=== PATIENT | male | born 2000 | race Two or more races ===

== ENCOUNTER 2024-07-15 10:05 | Inpatient (IN) | payer MEDICARE, MEDICAID, SELFPAY ==
[2024-07-15] VITALS (28 sets, daily range): BP systolic 121–161; BP diastolic 59–84; PULSE 70–130; RESP 14–40; TEMP 36.4–38.7; O2SAT 89–97; BMI 33.4
--- NOTE | ~2024-07-15 | XR_ITS ---
EXAMINATION: XR abdomen obstructive series DATE: 07/19/2024 10:39 INDICATION: Ileus TECHNIQUE: Frontal supine and upright views of the abdomen were obtained. COMPARISON: None. FINDINGS: Moderate to large amount of gas and stool scattered throughout the colon. No dilated loops of gas-ivana led small bowel to suggest obstruction. No free intraperitoneal gas. Airspace opacities in the bila teral lower lung zones improved since radiographs dated 07/17/2024 which could represent decreasing p ulmonary edema or improving pneumonia. Heart size is normal. Mild lumbar levoscoliosis. IMPRESSION: 1. Nonspecific bowel gas pattern with moderate to large amount of colonic gas and stool. No free int raperitoneal gas or dilated gas-filled loops of bowel to suggest obstruction. 2. Decreasing opacities in the bilateral lower lungs consistent with improving pulmonary edema or pne umonia. 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 Nonspecific bowel gas pattern with moderate to large amount of colonic gas and stool. No free intraperitoneal gas or dilated gas-filled loops of bowel to suggest obstruction. 2. Decreasing opacities in the bilateral lower lungs consistent with improving pulmonary edema or pneumonia.
--- NOTE | ~2024-07-15 | CT_ITS ---
EXAMINATION: CTA chest PE protocol DATE: 07/15/2024 11:09 INDICATION: Covid presenting with hypoxia and shortness of breath TECHNIQUE: Computed tomography (CT) pulmonary angiogram of the chest was performed with 100 mL Omnipa que-350 intravenous contrast. Additional 3D reconstructions utilizing coronal maximum intensity proje ction (MIP) were performed. Automated exposure control and iterative reconstruction technique were em ployed. The dose-length product was 721.82 mGy-cm. COMPARISON: None FINDINGS: No evident pulmonary embolism. Sensitivity mildly decreased in the segmental and more significantly d ecrease in the subsegmental pulmonary arteries due to combination of mild motion artifact, good but s uboptimal contrast opacification of the pulmonary arteries, streak artifact related to dense contrast in the superior vena cava and mild quantum mottle related to patient body habitus. Extensive bilater al patchy consolidation groundglass opacities throughout both lungs without evident septal line thick ening to suggest pulmonary edema and would favor multifocal pneumonia. Heart size is normal. No peric ardial effusion. Thoracic aorta is normal in caliber with no dissection. Likely reactive mild mediast inal lymphadenopathy. The bones and visualized portion of the upper abdomen are unremarkable. IMPRESSION: 1. Multifocal pneumonia throughout both lungs with likely reactive mild mediastinal lymphadenopathy. 2. No evident pulmonary embolism with sensitivity decreased in the segmental and more significantly i n the subsegmental pulmonary arteries which is of multifactorial etiology. Reviewed, dictated and finalized at location A. D MOLDER IMPRESSION: 1. Multifocal pneumonia throughout both lungs with likely reactive mild mediast inal lymphadenopathy. 2. No evident pulmonary embolism with sensitivity decreased in the segmental an d more significantly in the subsegmental pulmonary arteries which is of multifa ctorial etiology.
--- NOTE | ~2024-07-15 | XR_ITS ---
EXAMINATION: XR abdomen/kub 1V DATE: 07/17/2024 22:20 INDICATION: Fecal impaction. TECHNIQUE: A supine view of the abdomen on 2 radiographs was obtained. COMPARISON: Chest CT 07/25/2024 FINDINGS: There is gaseous distention of the sigmoid colon. There is a moderate volume of stool in th e colon. The small bowel is normal in caliber. IMPRESSION: 1. Distended sigmoid colon, consistent with adynamic ileus versus obstruction. Reviewed, dictated and finalized at location A. NT PROGRAM MANAGER
--- NOTE | ~2024-07-15 | XR_ITS ---
EXAMINATION: XR barium swallow modified DATE: 07/19/2024 11:00 INDICATION: Pneumonia. TECHNIQUE: The patient was given barium-containing material of multiple consistencies to swallow by t he speech pathologist while I performed fluoroscopy. Fluoroscopy exposure time was 0.7 minutes. The n umber of fluoroscopy images saved to the PACS was 1. Dose-area product was 1.387 Gy-cm^2. FINDINGS: The oral stage, pharyngeal stage, and cervical/esophageal stage of the swallow are normal. IMPRESSION: 1. Normal modified barium swallow. 2. Please refer to the speech therapy report for recommendations. Reviewed, dictated and finalized at location A. ATER OPERATOR
--- NOTE | ~2024-07-15 | XR_ITS ---
EXAMINATION: XR chest 2V DATE: 07/17/2024 22:20 INDICATION: Chest pain. TECHNIQUE: Frontal and lateral views of the chest were obtained. COMPARISON: Chest CT 07/15/2024 FINDINGS: There are airspace opacities in all lung zones bilaterally. No pleural effusion or pneumoth orax. The heart size is normal. IMPRESSION: 1. Diffuse lung disease, consistent with pneumonia. Reviewed, dictated and finalized at location A. E READER
--- NOTE | ~2024-07-15 | US_ITS ---
US right upper quadrant DATE: 07/17/2024 19:16 INDICATION: Elevated liver function tests TECHNIQUE: Real-time imaging of liver, pancreas, gallbladder COMPARISON: None FINDINGS: The pancreas is not well-demonstrated. No hepatic space-occupying mass lesion. Normal hepatopedal portal venous flow direction. Shadowing from the contracted gallbladder bed, suggesting cholelithiasis. Negative sonographic Felton sign. The common bile duct measures 5.5 mm, upper normal range. IMPRESSION: Suspected cholelithiasis Reviewed, dictated and finalized at Location A. Reviewed, dictated and finalized at location A. NING LATHE OPERATOR IMPRESSION: Suspected cholelithiasis
--- NOTE | 2024-07-15 10:10 | ECG_ITS ---
Test Date: 2024-07-15 14:52:16 Measurements Intervals [place] Rate: 88 P: 37 MA: 188 QRS: 59 QRSD: 86 T: 27 QT: 357 QTc: 433 Interpretive Statements SINUS RHYTHM NONSPECIFIC T-WAVE ABNORMALITY Compared to ECG 07/15/2024 10:46:28 Sinus tachycardia no longer present Electronically Signed On 07-16-2024 11:58:07 [employer] by Sheldon Robles M.D.
--- NOTE | 2024-07-15 10:27 | ED_ITS ---
HPI - URI/Sore Throat General Chief Complaint: Upper Respiratory Infection <CE Bang Last Filed: 07/15/24 19:02> Stated Complaint: COVID , low pulse ox <Sayda Dillard PA-C - Last Filed: 07/15/24 19:02> Time Seen by Provider: 07/15/24 10:07 <Sayda Dillard PA-C - Last Filed: 07/15/24 19:02> Source: patient and family <CE Bang Last Filed: 07/15/24 19:02> Mode of arrival: EMS <CE Bang Last Filed: 07/15/24 19:02> Limitations: no limitations <CE Bang Last Filed: 07/15/24 19:02> History of Present Illness HPI Narrative: Patient is a 24 y/o male, with PMH of XXYY syndrome, autism, who presents to the ED via EMS with report of SOB. Family at bedside assisted in providing information. Reports patient tested positive for COVID 19 at home on Friday. Has remained symptomatic with persistent cough/sore throat and increasing shortness of breath. Had fever up to 104.5 degree F this morning. Was given Aleve around 830am. EMS was then called. EMS noted patient to be hypoxic down to 86% on room air. He was placed on 4 L nasal cannula. Patient is vaccinated for COVID 19 with original vaccinations. Has not had boosters. Did receive flu shot this year. Denies chest pain. <CE Bang Last Filed: 07/15/24 19:02> Related Data Allergies/Adverse Reactions: Allergies Allergy/AdvReac Type Severity Reaction Status Date / Time No Known Allergies Allergy Verified 07/15/24 10:09 <CE Bang Last Filed: 07/15/24 19:02> Review of Systems 2 Review of Systems: All systems reviewed & are unremarkable except as noted in HPI. <CE Bang Last Filed: 07/15/24 19:02> All systems reviewed & are unremarkable except as noted in HPI and below < Sayda Dillard PA-C - Last Filed: 07/15/24 19:02> [facility] Past Medical History Medical History: Medical History XXYY syndrome <Sayda Dillard PA-C - Last Filed: 07/15/24 19:02> Exam 2 Narrative: GENERAL: Mildly ill appearing, obese with BMI of 34.2, in moderate acute distress. HEAD: Normocephalic, atraumatic. RESPIRATORY: Airway patent, respirations tachypneic and mildly labored. Conversational dyspnea. Diffuse rhonchi in lower lobes bilaterally. On 2L NC CARDIOVASCULAR: Tachycardic with regular rhythm without murmurs, rubs, or gallops. Peripheral pulses intact ABDOMINAL: Soft, no significant tenderness throughout exam, nondistended. Normoactive BS. MUSCULOSKELETAL: Moves all extremities. No gross deformities. No peripheral edema. SKIN: Warm, dry, normal color. NEURO: Alert, answers questions appropriately. Speech clear. Cranial nerves II- XII grossly intact. Steady gait. No ataxic movements. PSYCHIATRIC: Appropriate mood and affect. Normal interaction. <Sayda Dillard PA-C - Last Filed: 07/15/24 19:02> Course [employer]INTER/PA Physician Supervision This visit was performed by both a physician and an APC. I performed all aspects of the MDM as documented. <Barrett Motta MD - Last Filed: 07/15/24 18:53> Vital Signs Vital signs: Vital Signs Temperature 101.6 F H 07/15/24 10:00 Pulse Rate 130 H 07/15/24 10:00 Respiratory Rate 28 H 07/15/24 10:00 Blood Pressure 138/81 07/15/24 10:00 Pulse Oximetry 89 L 07/15/24 10:00 Oxygen Delivery Room Air 07/15/24 10:00 Temperature 98.1 F 07/15/24 13:00 Pulse Rate 82 07/15/24 18:30 Respiratory Rate 24 H 07/15/24 18:30 Blood Pressure 134/72 07/15/24 18:30 Pulse Oximetry 96 07/15/24 18:30 Oxygen Delivery Nasal Cannula 07/15/24 10:10 Oxygen Flow Rate 2 07/15/24 10:10 <Sayda Dillard PA-C - Last Filed: 07/15/24 19:02> Vital Signs Temperature 101.6 F H 07/15/24 10:00 Pulse Rate 130 H 07/15/24 10:00 Respiratory Rate 28 H 07/15/24 10:00 Blood Pressure 138/81 07/15/24 10:00 Pulse Oximetry 89 L 07/15/24 10:00 Oxygen Delivery Room Air 07/15/24 10:00 Temperature 98.1 F 07/15/24 13:00 Pulse Rate 82 07/15/24 18:30 Respiratory Rate 24 H 07/15/24 18:30 Blood Pressure 134/72 07/15/24 18:30 Pulse Oximetry 96 07/15/24 18:30 Oxygen Delivery Nasal Cannula 07/15/24 10:10 Oxygen Flow Rate 2 07/15/24 10:10 <Barrett Motta MD - Last Filed: 07/15/24 18:53> MDM - URI/Sore Throat MDM Narrative Medical decision making narrative: Patient presented to ED with known COVID-19, worsening shortness of breath. Found to be hypoxic by EMS down to 86% on room air. Placed on oxygen. He was 89% on the room air here, currently on 2 L nasal cannula. Patient tachycardic, tachypneic, febrile. Fluids and Tylenol initiated as well as dexamethasone for COVID hypoxia. Laboratory studies are fairly unremarkable. Mild thrombocytopenia noted at 123. No records to compare to. Electrolytes within normal range. Mag borderline, IV replacement given. Lactic acid within normal range. EKG w/o ischemic changes. Trop undetectable. BNP WNL. Chest CTA obtained and no evidence of PE. Does show multifocal pneumonia bilaterally. Blood cultures obtained. Patient will be admitted for further evaluation of hypoxia, pneumonia, severe COVID. Discussed case with Dr. Davis, hospitalist, accepted patient for admission. Recommended dexamethasone daily, remdesivir, as well as Rocephin/ azithromycin for potential bacterial pneumonia. Also recommended to add on urine sample. Patient and family in agreement with plan and need for admission. Patient's vitals have improved significantly after treatment of fever and 1 L fluid bolus. <Sayda Dillard PA-C - Last Filed: 07/15/24 19:02> Medical Records Attestation: I reviewed the patient's medical records. <Sayda Dillard PA-C - Last Filed: 07/15/24 19:02> Lab Data Attestation: I reviewed the patient's lab results. <Sayda Dillard PA-C - Last Filed: 07/15/24 19:02> Result diagrams: 07/15/24 10:31 07/15/24 10:31 <Sayda Dillard PA-C - Last Filed: 07/15/24 19:02> Labs: Lab Results 07/15/24 07/15/24 07/15/24 Range/Units 10:29 10:31 12:16 WBC 4.7 (4.5-10.0) K/mm3 RBC 5.40 (4.6-6.20) M/mm3 Hgb 14.9 (14.0-18.0) g/dL Hct 45.2 (42.0-52.0) % MCV 83.7 (80-100) fl MCH 27.6 (26-34) pg MCHC 33.0 (32-36) g/dl RDW 13.9 (11.5-14.5) % Plt Count 123 L (150-375) k/mm3 MPV 10.4 (7.4-10.4) fl Immature Gran % (Auto) 0.9 H (0-0.5) % Neut % (Auto) 53.6 (45.5-73.1) % Lymph % (Auto) 33.6 (18.3-44.2) % [place] % (Auto) 10.9 H (2.6-8.5) % Eos % (Auto) 0.6 (0-4.4) % Baso % (Auto) 0.4 (0.2-1.2) % Lymph # (Auto) 1.58 (0.9-3.2) K/mm3 [place] # (Auto) 0.5 (0.1-0.6) K/mm3 Eos # (Auto) 0.0 (0-0.3) K/mm3 Baso # (Auto) 0.0 (0.0-0.1) K/mm3 Abs Immat Gran (auto) 0.04 H (0.00-0.031) K/mm3 Absolute Neuts (auto) 2.5 (1.3-6.7) K/mm3 Absolute Nucleated RBC 0.000 (0.0-0.012) K/mm3 Nucleated RBC % 0.0 (0.0-0.2) % % Immature Plt Fraction 4.1 (0.9-11.2) % PT 13.8 (11.1-14.7) Seconds INR 1.0 APTT 32.7 (22.3-36.8) Seconds Sodium 140 (137-145) mmol/L Potassium 4.1 (3.4-5.0) mmol/L Chloride 108 H (98-107) mmol/L Carbon Dioxide 25 (22-30) mmol/L Anion Gap 7 (4-12) mmol/L BUN 15 (9-20) mg/dL Creatinine 1.20 (0.7-1.3) mg/dL Estim Creat Clear Calc Not Reportable Estimated GFR > 60 (59 - ) Glucose 158 H (65-110) mg/dL Lactic Acid 1.2 (0.7-2.0) mmol/L Calcium 8.5 (8.4-10.2) mg/dL Magnesium 1.6 (1.6-2.3) mg/dL Total Bilirubin 0.6 (0.2-1.3) mg/dL AST 52 (17-59) U/L ALT 55 H (6-50) U/L Alkaline Phosphatase 104 (38-126) U/L Troponin I < 0.012 (0.000-0.034) ng/mL NT-Pro-B Natriuret Pep 32 (19.9-100) pg/mL Total Protein 8.0 (6.3-8.2) g/dL Albumin 4.1 (3.5-5.1) g/dL Procalcitonin 0.2 ng/mL Urine Color Dark yellow (Yellow) Urine Appearance Clear (Clear) Urine pH 5.5 (5.0-9.0) Ur Specific [place] 1.043 H (1.001-1.035) Urine Protein 1+ H (Negative) mg/dL Urine Glucose (UA) Negative (Negative) mg/dL Urine Ketones Trace H (Negative) mg/dL Ur Blood (Man) 2+ H (Negative) Urine Nitrate Negative (Negative) Urine Bilirubin 1+ H (Negative) Urine Urobilinogen 1.0 (<2.0) mg/dL Add Ur Microanalysis Reviewed Leukocyte Esterase Rfl Negative (Negative) RUBIO/UL Urine RBC 11-20 H (0-2) /hpf Urine WBC 0-5 (0-3) /hpf Ur Squamous Epith Cells Moderate (Few) /hpf Urine Bacteria None seen /hpf Urine Casts 11-20 // Range/Units 13:08 WBC (4.5-10.0) K/mm3 RBC (4.6-6.20) M/mm3 Hgb (14.0-18.0) g/dL Hct (42.0-52.0) % MCV (80-100) fl MCH (26-34) pg MCHC (32-36) g/dl RDW (11.5-14.5) % Plt Count (150-375) k/mm3 MPV (7.4-10.4) fl Immature Gran % (Auto) (0-0.5) % Neut % (Auto) (45.5-73.1) % Lymph % (Auto) (18.3-44.2) % [place] % (Auto) (2.6-8.5) % Eos % (Auto) (0-4.4) % Baso % (Auto) (0.2-1.2) % Lymph # (Auto) (0.9-3.2) K/mm3 [place] # (Auto) (0.1-0.6) K/mm3 Eos # (Auto) (0-0.3) K/mm3 Baso # (Auto) (0.0-0.1) K/mm3 Abs Immat Gran (auto) (0.00-0.031) K/mm3 Absolute Neuts (auto) (1.3-6.7) K/mm3 Absolute Nucleated RBC (0.0-0.012) K/mm3 Nucleated RBC % (0.0-0.2) % % Immature Plt Fraction (0.9-11.2) % PT (11.1-14.7) Seconds INR APTT (22.3-36.8) Seconds Sodium (137-145) mmol/L Potassium (3.4-5.0) mmol/L Chloride (98-107) mmol/L Carbon Dioxide (22-30) mmol/L Anion Gap (4-12) mmol/L BUN (9-20) mg/dL Creatinine (0.7-1.3) mg/dL Estim Creat Clear Calc Estimated GFR (59 - ) Glucose (65-110) mg/dL Lactic Acid (0.7-2.0) mmol/L Calcium (8.4-10.2) mg/dL Magnesium (1.6-2.3) mg/dL Total Bilirubin (0.2-1.3) mg/dL AST (17-59) U/L ALT (6-50) U/L Alkaline Phosphatase (38-126) U/L Troponin I < 0.012 (0.000-0.034) ng/mL NT-Pro-B Natriuret Pep (19.9-100) pg/mL Total Protein (6.3-8.2) g/dL Albumin (3.5-5.1) g/dL Procalcitonin ng/mL Urine Color (Yellow) Urine Appearance (Clear) Urine pH (5.0-9.0) Ur Specific [place] (1.001-1.035) Urine Protein (Negative) mg/dL Urine Glucose (UA) (Negative) mg/dL Urine Ketones (Negative) mg/dL Ur Blood (Man) (Negative) Urine Nitrate (Negative) Urine Bilirubin (Negative) Urine Urobilinogen (<2.0) mg/dL Add Ur Microanalysis Leukocyte Esterase Rfl (Negative) RUBIO/UL Urine RBC (0-2) /hpf Urine WBC (0-3) /hpf Ur Squamous Epith Cells (Few) /hpf Urine Bacteria /hpf Urine Casts <Sayda Dillard PA-C - Last Filed: 07/15/24 19:02> Lab Results 07/15/24 07/15/24 07/15/24 Range/Units 10:29 10:31 12:16 WBC 4.7 (4.5-10.0) K/mm3 RBC 5.40 (4.6-6.20) M/mm3 Hgb 14.9 (14.0-18.0) g/dL Hct 45.2 (42.0-52.0) % MCV 83.7 (80-100) fl MCH 27.6 (26-34) pg MCHC 33.0 (32-36) g/dl RDW 13.9 (11.5-14.5) % Plt Count 123 L (150-375) k/mm3 MPV 10.4 (7.4-10.4) fl Immature Gran % (Auto) 0.9 H (0-0.5) % Neut % (Auto) 53.6 (45.5-73.1) % Lymph % (Auto) 33.6 (18.3-44.2) % [place] % (Auto) 10.9 H (2.6-8.5) % Eos % (Auto) 0.6 (0-4.4) % Baso % (Auto) 0.4 (0.2-1.2) % Lymph # (Auto) 1.58 (0.9-3.2) K/mm3 [place] # (Auto) 0.5 (0.1-0.6) K/mm3 Eos # (Auto) 0.0 (0-0.3) K/mm3 Baso # (Auto) 0.0 (0.0-0.1) K/mm3 Abs Immat Gran (auto) 0.04 H (0.00-0.031) K/mm3 Absolute Neuts (auto) 2.5 (1.3-6.7) K/mm3 Absolute Nucleated RBC 0.000 (0.0-0.012) K/mm3 Nucleated RBC % 0.0 (0.0-0.2) % % Immature Plt Fraction 4.1 (0.9-11.2) % PT 13.8 (11.1-14.7) Seconds INR 1.0 APTT 32.7 (22.3-36.8) Seconds Sodium 140 (137-145) mmol/L Potassium 4.1 (3.4-5.0) mmol/L Chloride 108 H (98-107) mmol/L Carbon Dioxide 25 (22-30) mmol/L Anion Gap 7 (4-12) mmol/L BUN 15 (9-20) mg/dL Creatinine 1.20 (0.7-1.3) mg/dL Estim Creat Clear Calc Not Reportable Estimated GFR > 60 (59 - ) Glucose 158 H (65-110) mg/dL Lactic Acid 1.2 (0.7-2.0) mmol/L Calcium 8.5 (8.4-10.2) mg/dL Magnesium 1.6 (1.6-2.3) mg/dL Total Bilirubin 0.6 (0.2-1.3) mg/dL AST 52 (17-59) U/L ALT 55 H (6-50) U/L Alkaline Phosphatase 104 (38-126) U/L Troponin I < 0.012 (0.000-0.034) ng/mL NT-Pro-B Natriuret Pep 32 (19.9-100) pg/mL Total Protein 8.0 (6.3-8.2) g/dL Albumin 4.1 (3.5-5.1) g/dL Procalcitonin 0.2 ng/mL Urine Color Dark yellow (Yellow) Urine Appearance Clear (Clear) Urine pH 5.5 (5.0-9.0) Ur Specific [place] 1.043 H (1.001-1.035) Urine Protein 1+ H (Negative) mg/dL Urine Glucose (UA) Negative (Negative) mg/dL Urine Ketones Trace H (Negative) mg/dL Ur Blood (Man) 2+ H (Negative) Urine Nitrate Negative (Negative) Urine Bilirubin 1+ H (Negative) Urine Urobilinogen 1.0 (<2.0) mg/dL Add Ur Microanalysis Reviewed Leukocyte Esterase Rfl Negative (Negative) RUBIO/UL Urine RBC 11-20 H (0-2) /hpf Urine WBC 0-5 (0-3) /hpf Ur Squamous Epith Cells Moderate (Few) /hpf Urine Bacteria None seen /hpf Urine Casts 11-20 //24 Range/Units 13:08 WBC (4.5-10.0) K/mm3 RBC (4.6-6.20) M/mm3 Hgb (14.0-18.0) g/dL Hct (42.0-52.0) % MCV (80-100) fl MCH (26-34) pg MCHC (32-36) g/dl RDW (11.5-14.5) % Plt Count (150-375) k/mm3 MPV (7.4-10.4) fl Immature Gran % (Auto) (0-0.5) % Neut % (Auto) (45.5-73.1) % Lymph % (Auto) (18.3-44.2) % [place] % (Auto) (2.6-8.5) % Eos % (Auto) (0-4.4) % Baso % (Auto) (0.2-1.2) % Lymph # (Auto) (0.9-3.2) K/mm3 [place] # (Auto) (0.1-0.6) K/mm3 Eos # (Auto) (0-0.3) K/mm3 Baso # (Auto) (0.0-0.1) K/mm3 Abs Immat Gran (auto) (0.00-0.031) K/mm3 Absolute Neuts (auto) (1.3-6.7) K/mm3 Absolute Nucleated RBC (0.0-0.012) K/mm3 Nucleated RBC % (0.0-0.2) % % Immature Plt Fraction (0.9-11.2) % PT (11.1-14.7) Seconds INR APTT (22.3-36.8) Seconds Sodium (137-145) mmol/L Potassium (3.4-5.0) mmol/L Chloride (98-107) mmol/L Carbon Dioxide (22-30) mmol/L Anion Gap (4-12) mmol/L BUN (9-20) mg/dL Creatinine (0.7-1.3) mg/dL Estim Creat Clear Calc Estimated GFR (59 - ) Glucose (65-110) mg/dL Lactic Acid (0.7-2.0) mmol/L Calcium (8.4-10.2) mg/dL Magnesium (1.6-2.3) mg/dL Total Bilirubin (0.2-1.3) mg/dL AST (17-59) U/L ALT (6-50) U/L Alkaline Phosphatase (38-126) U/L Troponin I < 0.012 (0.000-0.034) ng/mL NT-Pro-B Natriuret Pep (19.9-100) pg/mL Total Protein (6.3-8.2) g/dL Albumin (3.5-5.1) g/dL Procalcitonin ng/mL Urine Color (Yellow) Urine Appearance (Clear) Urine pH (5.0-9.0) Ur Specific [place] (1.001-1.035) Urine Protein (Negative) mg/dL Urine Glucose (UA) (Negative) mg/dL Urine Ketones (Negative) mg/dL Ur Blood (Man) (Negative) Urine Nitrate (Negative) Urine Bilirubin (Negative) Urine Urobilinogen (<2.0) mg/dL Add Ur Microanalysis Leukocyte Esterase Rfl (Negative) RUBIO/UL Urine RBC (0-2) /hpf Urine WBC (0-3) /hpf Ur Squamous Epith Cells (Few) /hpf Urine Bacteria /hpf Urine Casts <Barrett Motta MD - Last Filed: 07/15/24 18:53> Imaging Data Attestation: I personally reviewed and interpreted this imaging study as follows: < Sayda Dillard PA-C - Last Filed: 07/15/24 19:02> Radiologist's impression: ITS Impressions Chest CTA 07/15/24 11:20 IMPRESSION: 1. Multifocal pneumonia throughout both lungs with likely reactive mild mediastinal lymphadenopathy. 2. No evident pulmonary embolism with sensitivity decreased in the segmental and more significantly in the subsegmental pulmonary arteries which is of multifactorial etiology. <Sayda Dillard PA-C - Last Filed: 07/15/24 19:02> ECG Data EKG #1: Attestation: I personally reviewed and interpreted this ECG as follows: <Sayda Dillard PA-C - Last Filed: 07/15/24 19:02> ECG completion date: 07/15/24 <Sayda Dillard PA-C - Last Filed: 07/15/24 19:02> Discharge Plan Discharge Clinical Impression: COVID-19, Acute hypoxic respiratory failure, Multifocal pneumonia, XXYY syndrome <Sayda Dillard PA-C - Last Filed: 07/15/24 19:02> Patient Disposition: Still a Patient <Sayda Dillard PA-C - Last Filed: 07/15/24 19:02> Condition: Serious <Sayda Dillard PA-C - Last Filed: 07/15/24 19:02>
[2024-07-15 10:41] LABS: Basophils Percent Auto 0.4 % (0.2-1.2); Eosinophils Percent Auto 0.6 % (0-4.4); Hematocrit 45.2 % (42.0-52.0); Hemoglobin 14.9 g/dL (14.0-18.0); Immature Granulocyte Absolute 0.04 K/mm3 (0.00-0.031); Immature Granulocyte Percent A 0.9 % (0-0.5); Immature Platelet Fraction Pct 4.1 % (0.9-11.2); Lymphocytes Absolute Auto 1.58 K/mm3 (0.9-3.2); Lymphocytes Percent Auto 33.6 % (18.3-44.2); Mean Corpuscular Hemoglobin 27.6 pg (26-34); Mean Corpuscular Volume 83.7 fl (80-100); Mean Platelet Volume 10.4 fl (7.4-10.4); Monocytes Absolute Auto 0.5 K/mm3 (0.1-0.6); Monocytes Percent Auto 10.9 % (2.6-8.5); Neutrophils Absolute Auto 2.5 K/mm3 (1.3-6.7); Neutrophils Percent Auto 53.6 % (45.5-73.1); Platelet Count Result 123 k/mm3 (150-375); Red Cell Distribution Width 13.9 % (11.5-14.5); White Blood Count 4.7 K/mm3 (4.5-10.0)
[2024-07-15 10:48] LABS: Lactic Acid Reflex 1.2 mmol/L (0.7-2.0)
[2024-07-15 10:49] LABS: Alanine Aminotransferase 55 U/L (6-50); Albumin Level 4.1 g/dL (3.5-5.1); Alkaline Phosphatase 104 U/L (38-126); Anion Gap 7 mmol/L (4-12); Aspartate Amino Transferase 52 U/L (17-59); Bilirubin,Total 0.6 mg/dL (0.2-1.3); Blood Urea Nitrogen 15 mg/dL (9-20); Calcium 8.5 mg/dL (8.4-10.2); Carbon Dioxide 25 mmol/L (22-30); Chloride 108 mmol/L (98-107); Estimated Glomerular Filt Rate > 60; Glucose 158 mg/dL (65-110); Magnesium 1.6 mg/dL (1.6-2.3); Potassium 4.1 mmol/L (3.4-5.0); Sodium 140 mmol/L (137-145)
[2024-07-15 10:50] LABS: Prothrombin Time 13.8 Seconds (11.1-14.7)
[2024-07-15] MEDS: SODIUM CHLORIDE 0.9% IV 1,000 ML 999 ML IV CONT (10:50)
[2024-07-15 10:51] LABS: Partial Thromboplastin Time 32.7 Seconds (22.3-36.8)
[2024-07-15] MEDS: ACETAMINOPHEN 500 MG TABLET 1000 MG PO (10:57)
[2024-07-15 11:00] LABS: NT Pro B Type Natriuretic Pept 32 pg/mL (19.9-100); Troponin I < 0.012 ng/mL (0.000-0.034)
[2024-07-15] MEDS: dexAMETHasone SOD PHOS INJ 10 MG/ML 1 ML VIAL 6 MG IV PUSH (11:14)
[2024-07-15] MEDS: MAGNESIUM SULF 2 GM/WATER 50ML 2 GM/50 ML BAG IVPB (11:15)
[2024-07-15 12:53] LABS: Add Urine Microscopic? YES; Appearance Urine Clear (Clear); Bacteria Urine None Seen /hpf; Bilirubin Urine 1+ (Negative); Blood Urine 2+ (Negative); Color Urine Dark Yellow (Yellow); Glucose Urine UA Negative (Negative); Ketones Urine Trace mg/dL (Negative); Leukocyte Esterase Ur Negative LEU/UL (Negative); Need Manual Microscopic Reviewed; Nitrate Urine Negative (Negative); Protein Urine 1+ mg/dL (Negative); Specific Grav Ur 1.043 (1.001-1.035); Squamous Epithelial Cell Urine Moderate /hpf (Few); WBC Urine 0-5 /hpf (0-3); pH Urine 5.5 (5.0-9.0)
[2024-07-15] MEDS: REMDESIVIR 200 MG/NS 250 ML 200 MG/250 ML BAG 250 MG IVPB (13:15)
--- NOTE | 2024-07-15 13:33 | ECG_ITS ---
Test Date: 2024-07-15 10:46:28 Measurements Intervals [place] Rate: 106 P: 35 TN: 174 QRS: 56 QRSD: 82 T: 22 QT: 318 QTc: 424 Interpretive Statements SINUS TACHYCARDIA NONSPECIFIC T-WAVE ABNORMALITY No previous ECG available for comparison Electronically Signed On 07-16-2024 11:52:24 [employer] by Sheldon Robles M.D.
[2024-07-15 13:36] LABS: Troponin I < 0.012 ng/mL (0.000-0.034)
[2024-07-15 13:46] LABS: Procalcitonin 0.2 ng/mL
[2024-07-15] MEDS: AZITHROMYCIN 500 MG/NS 250 ML 500 MG/250 ML BAG 250 MG IVPB (14:00)
--- NOTE | 2024-07-15 14:54 | PM.IMHP ---
H&P: HPI History of Present Illness Date/Time: 07/15/24 14:54 Chief Complaint: Shortness of breath, fevers. Narrative: Edwardo Lam is a 24 year old male with PMH of developmental disability (XXYY) who presents with ongoing fevers and shortness of breath from home. Covid dx last Friday, is vaccinated and was recovering at home, although reported to have persistent fevers >101 throughout this week, improved with NSAIDS. He was more short of breath this am and EMS was contacted, with noted O2 sats in the mid 80 range on their arrival. He was placed on NC and transported to the hospital. Parent is present at bedside and denies any additional symptomology other than fevers and sob/cough. There is no diarrhea, no bm in a few days. Intake has been poor for 72 hours. No history of pulmonary complaints, does not take any routine pulm medications - is on several antipsychotics, mood stabilizers. On ED evaluation a CTA chest was performed, Multifocal pneumonia throughout both lungs with likely reactive mild mediastinal lymphadenopathy. Labwork shows normal wbc count, normal procal, normal lactate. Electrolytes grossly wdl. Urine w/o nitrites/leuks. He was O2 requiring at 2L. He was started on decadron/remdesivir, as well as rocephin/zithromax for likely superimposed bacterial pna. Edwardo is being admitted for further management of hypoxic resp. failure 2/2 to covid pna with possible superimposed bacterial pna. Review of Systems Review of Systems: CONSTITUTIONAL: ?+ fever SKIN: ?No rash or pruritis. CARDIOVASCULAR: ?No chest pain, chest pressure or chest discomfort. No palpitations.? RESPIRATORY: ?No shortness of breath, cough or sputum. GASTROINTESTINAL: ?No abd. pain. Poor appetite, no bm x 3 days. NEUROLOGICAL: ?No headache, dizziness, syncope. [facility] Past Medical History Medical History XXYY syndrome Meds Home Medications and Allergies Allergies Allergy/AdvReac Type Severity Reaction Status Date / Time No Known Allergies Allergy Verified 07/15/24 10:09 Vital Signs Vital Signs - 24 hr 07/15/24 10:00 07/15/24 10:10 07/15/24 10:33 Temperature 101.6 F H Pulse Rate 130 H 109 H Respiratory Rate 28 H 22 H Blood Pressure 138/81 Pulse Oximetry 89 L 95 96 Oxygen Delivery Room Air Nasal Cannula Oxygen Flow Rate 2 07/15/24 10:57 07/15/24 11:18 07/15/24 11:30 Temperature Pulse Rate 106 H 100 99 Respiratory Rate 27 H 40 H 39 H Blood Pressure 123/78 132/69 131/71 Pulse Oximetry 94 97 95 Oxygen Delivery Oxygen Flow Rate 07/15/24 11:45 07/15/24 12:00 07/15/24 12:30 Temperature 98.1 F Pulse Rate 100 97 92 Respiratory Rate 36 H 40 H 31 H Blood Pressure 132/69 121/72 122/69 Pulse Oximetry 94 93 94 Oxygen Delivery Oxygen Flow Rate 07/15/24 13:00 07/15/24 13:30 07/15/24 14:00 Temperature 98.1 F Pulse Rate 100 89 Respiratory Rate 21 H 33 H Blood Pressure 132/74 141/70 H Pulse Oximetry 93 94 Oxygen Delivery Oxygen Flow Rate 07/15/24 14:30 Temperature Pulse Rate 92 Respiratory Rate 39 H Blood Pressure 130/66 Pulse Oximetry 93 Oxygen Delivery Oxygen Flow Rate Exam Narrative: GENERAL APPEARANCE: Appears to be in no acute distress. HEAD: normocephalic atraumatic EYES: . Vision grossly intact. ENT: Hearing grossly intact, no nasal discharge NECK: Neck supple, trachea midline. CARDIAC: Normal S1/S2. Rhythm is regular. No murmurs, rubs, or gallops. No cyanosis or pallor. Extremities are warm and well perfused. LUNGS: Diffuse exp. coarse wheezes. No IWOB on nc. ABDOMEN: BS positive x 4 quadrants. Soft, nondistended, mild tender lower quadrants to palpation. MSK: No joint tenderness/swelling, fair strength in all extremities. PERIPHERAL VASCULAR: Peripheral pulses palpable. Normal perfusion, cap refill <2 seconds. No edema. NEURO: Follows commands. SKIN: [place] without lesions or eruptions. PSYCH: Stable, no paranoia or delusional thinking. H&P: Results Labs Labs: Short CBC 07/15/24 Range/Units 10:31 WBC 4.7 (4.5-10.0) K/mm3 Hgb 14.9 (14.0-18.0) g/dL Hct 45.2 (42.0-52.0) % Plt Count 123 L (150-375) k/mm3 BMP 07/15/24 10:31 Sodium 140 Potassium 4.1 Chloride 108 H Carbon Dioxide 25 BUN 15 Creatinine 1.20 Glucose 158 H Calcium 8.5 Cardiac Enzymes 07/15/24 07/15/24 Range/Units 10:31 13:08 Troponin I < 0.012 < 0.012 (0.000-0.034) ng/mL Liver Function 07/15/24 Range/Units 10:31 Total Bilirubin 0.6 (0.2-1.3) mg/dL AST 52 (17-59) U/L ALT 55 H (6-50) U/L Alkaline Phosphatase 104 (38-126) U/L Albumin 4.1 (3.5-5.1) g/dL Urine 07/15/24 Range/Units 12:16 Urine Color Dark yellow (Yellow) Urine Appearance Clear (Clear) Urine pH 5.5 (5.0-9.0) Ur Specific [place] 1.043 H (1.001-1.035) Urine Protein 1+ H (Negative) mg/dL Urine Glucose (UA) Negative (Negative) mg/dL Assessment and Plan Assessment and plan (1) Multifocal pneumonia: Code(s): J18.9 - Pneumonia, unspecified organism Status: Acute Assessment and Plan: Worsening sob/hypoxia with covid dx, poss. superimposed bacterial pna, now on CAP therapy. Multifocal, atypical. - Day 1 rocephin/zithromax. - repeat procal, basic labs am. If procal remains negative consider deescalation at 48 hours. (2) Acute hypoxic respiratory failure: Code(s): J96.01 - Acute respiratory failure with hypoxia Status: Acute Assessment and Plan: 86% RA, now mid 90s on 2L. No pulm history reported. - Cont. with supplemental oxygen, titrate for >94%. - Treatment as above for pneumonia. (3) COVID-19: Code(s): U07.1 - COVID-19 Status: Acute Assessment and Plan: Patient day 5 since diagnosis with worsening shortness of breath, hypoxia, fevers. CTA negative for PE. - Remdesivir and dexamethasone day 1 today. - Full anticoag w/ lovenox. - Covid precautions. 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 Plan Edwardo Lam is a 24 y.o. male with hx developmental disability (xxyy) presenting 5 days post covid diagnosis with continued fevers and question of secondary bacterial pna. Initial treatment to include remdesivir/dexamethasone/anticoagulation and CAP abx to cover possible secondary bacterial pna. Quality VTE Prophylaxis VTE prophylaxis: mechanical ordered and pharmacologic ordered Hospitalist MIPS Advance Care Plan I have confirmed that the patient's Advanced Care Plan is present, code status is documented, or surrogate decision maker is listed in patient medical record.: Yes Medication Reconciliation I have utilized all available resources to obtain, update and review the patients current medications (includes all prescriptions, OTC, herbals, cannabis, and nutritional supplements).: Yes
[2024-07-15] MEDS: ENOXAPARIN 100 MG/ML SYRINGE SUB-Q (17:30)
[2024-07-15] MEDS: ENOXAPARIN 30 MG/0.3 ML SYRINGE SUB-Q (17:30)
--- NOTE | 2024-07-15 21:28 | ADMGEN ---
This patient, Edwardo Lam, was admitted to IMU Room 231-01. Patient/family oriented to hospital policies and general routines including ID bracelet, bed and alarms, visiting hours, pain management, procedures, bathroom and other care routines, personal items, smoking policy, room service/diet, and visiting hours. Information on how to activate the Rapid Response Team has been discussed. Patient/Family are encouraged to report perceived risks to care and to ask questions if they do not understand what they are told or what they should do.
[2024-07-15 22:22] LABS: Glucose Point of Care 264 mg/dl (65-105)
[2024-07-16] VITALS (16 sets, daily range): BP systolic 124–143; BP diastolic 60–78; PULSE 70–111; RESP 20–56; TEMP 36.2–38.2; O2SAT 91–95
[2024-07-16] MEDS: ENOXAPARIN 100 MG/ML SYRINGE SUB-Q (04:52)
[2024-07-16] MEDS: ENOXAPARIN 30 MG/0.3 ML SYRINGE SUB-Q (04:52)
[2024-07-16] MEDS: dexAMETHasone SOD PHOS INJ 10 MG/ML 1 ML VIAL 6 MG IV PUSH (09:30)
[2024-07-16 09:41] LABS: Basophils Percent Auto 0.3 % (0.2-1.2); Hematocrit 43.9 % (42.0-52.0); Immature Granulocyte Absolute 0.03 K/mm3 (0.00-0.031); Immature Granulocyte Percent A 0.4 % (0-0.5); Lymphocytes Absolute Auto 2.07 K/mm3 (0.9-3.2); Lymphocytes Percent Auto 30.8 % (18.3-44.2); Mean Corpuscular HGB Conc 31.9 g/dl (32-36); Mean Corpuscular Hemoglobin 27.7 pg (26-34); Mean Corpuscular Volume 86.8 fl (80-100); Mean Platelet Volume 11.3 fl (7.4-10.4); Monocytes Absolute Auto 0.6 K/mm3 (0.1-0.6); Monocytes Percent Auto 9.4 % (2.6-8.5); Neutrophils Percent Auto 59.1 % (45.5-73.1); Platelet Count Result 171 k/mm3 (150-375); Red Blood Count 5.06 M/mm3 (4.6-6.20); Red Cell Distribution Width 14.1 % (11.5-14.5); White Blood Count 6.7 K/mm3 (4.5-10.0)
[2024-07-16] MEDS: AZITHROMYCIN 500 MG/NS 250 ML 500 MG/250 ML BAG 250 MG IVPB (09:55)
[2024-07-16 10:05] LABS: Alanine Aminotransferase 54 U/L (6-50); Albumin Level 3.8 g/dL (3.5-5.1); Alkaline Phosphatase 100 U/L (38-126); Anion Gap 9 mmol/L (4-12); Aspartate Amino Transferase 65 U/L (17-59); Bilirubin,Total 0.6 mg/dL (0.2-1.3); Blood Urea Nitrogen 15 mg/dL (9-20); Calcium 8.6 mg/dL (8.4-10.2); Carbon Dioxide 22 mmol/L (22-30); Chloride 110 mmol/L (98-107); Estimated CRCL calculation 188 ml/min; Estimated Glomerular Filt Rate > 60; Glucose 212 mg/dL (65-110); Magnesium 2.5 mg/dL (1.6-2.3); Potassium 5.2 mmol/L (3.4-5.0); Sodium 141 mmol/L (137-145)
[2024-07-16 11:24] LABS: Procalcitonin 0.1 ng/mL
[2024-07-16] MEDS: REMDESIVIR 100 MG/NS 250 ML 100 MG/250 ML BAG 250 MG IVPB (11:37)
--- NOTE | 2024-07-16 15:15 | P.PNIM_ITS ---
Progress Note: A&P Assessment and Plan (1) Acute hypoxic respiratory failure: Code(s): J96.01 - Acute respiratory failure with hypoxia Status: Acute Assessment and Plan: Patient tested positive for COVID at home on 07/10 who presents with shortness of breath and found to be hypoxic. Febrile on admission. WBC normal. BNP 32. Troponin negative. Lactic 1.2. PCT 0.2 -> 0.1. Was 86% on room air. Stable on 2L CTA Chest showing no PE with multifocal PNA. COVID with possible superimposed bacterial PNA. Started on Rocephin and Azithromycin once BCx collected. No pulm history reported. Cont. with supplemental oxygen, titrate for >94%. (2) Multifocal pneumonia: Code(s): J18.9 - Pneumonia, unspecified organism Status: Acute Assessment and Plan: As above (3) COVID-19: Code(s): U07.1 - COVID-19 Status: Acute Assessment and Plan: Patient day 5 since diagnosis with worsening shortness of breath, hypoxia, and fevers. CTA negative for PE but consistent with PNA. Remdesivir and dexamethasone started Covid precautions. Check swab to verify diagnosis. 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 (5) Diabetes mellitus: Code(s): E11.9 - Type 2 diabetes mellitus without complications Status: Acute Assessment and Plan: The patient's blood glucose was reviewed on 07/16 Glucose elevated due to steroids Start AccuCheks covering with sliding scale. Hypoglycemia protocol will be available as needed. Continue to monitor Plan DVT Prophylaxis - Lovenox (change to prophylaxis dose) Code status - full Subjective Date/time seen: 07/16/24 15:15 Interval history: 24yo male with developmental delay, autism and psychiatric illnesses here for SOB. Patient is alert but confused and unable to provide history. Family at bedside. Patient having a cough but known to have a chronic cough. No hx of dyphagia. No choking or coughing when eating or drinking. Did not get COVID vaccine this marguerite hernandez Review of Systems Review of Systems: ROS unobtainable: Yes unobtainable due to mental status Exam Narrative: Tm 101.6 99.3 143/71 95 28 94% 2L Gen - NARD lying semi-recumbent in bed. Chest - distant BS with inspiratory crackles in the bases, nml RR CV - RRR S1/S2. Tele showing no significant dysrhythmias Abd - Soft, protubernat, +BS, NT Ext - No pedal edema Neuro - Alert but confused. follows commands Psych - Nml mood and affect Skin - Warm and dry Objective Data Vital Signs Vital Signs: Vital Signs - 24 hr 07/15/24 15:30 07/15/24 15:45 07/15/24 16:00 Temperature Pulse Rate 87 88 90 Respiratory Rate 30 H 30 H 28 H Blood Pressure 127/74 141/70 H Pulse Oximetry 96 95 95 Oxygen Delivery Oxygen Flow Rate 07/15/24 16:19 07/15/24 16:30 07/15/24 17:00 Temperature Pulse Rate 94 89 86 Respiratory Rate 22 H 26 H 28 H Blood Pressure 138/72 133/75 138/75 Pulse Oximetry 92 94 95 Oxygen Delivery Oxygen Flow Rate 07/15/24 17:30 07/15/24 18:00 07/15/24 18:30 Temperature Pulse Rate 83 91 82 Respiratory Rate 32 H 30 H 24 H Blood Pressure 129/69 136/84 134/72 Pulse Oximetry 95 94 96 Oxygen Delivery Oxygen Flow Rate 07/15/24 19:00 07/15/24 20:00 07/15/24 22:00 Temperature Pulse Rate 87 73 73 Respiratory Rate 14 Blood Pressure 161/78 H Pulse Oximetry 94 Oxygen Delivery Oxygen Flow Rate 07/15/24 22:22 07/15/24 23:48 07/16/24 00:00 Temperature 97.9 F 97.6 F Pulse Rate 73 70 70 Respiratory Rate 16 20 20 Blood Pressure 129/59 L 132/63 Pulse Oximetry 93 95 95 Oxygen Delivery Nasal Cannula Oxygen Flow Rate 2 07/16/24 00:00 07/16/24 02:00 07/16/24 03:56 Temperature Pulse Rate 70 79 70 Respiratory Rate 20 Blood Pressure Pulse Oximetry 95 Oxygen Delivery Nasal Cannula Oxygen Flow Rate 3 07/16/24 04:00 07/16/24 04:00 07/16/24 06:00 Temperature 98.3 F Pulse Rate 90 86 92 Respiratory Rate 24 H Blood Pressure 132/78 Pulse Oximetry 91 Oxygen Delivery Oxygen Flow Rate 07/16/24 08:00 07/16/24 08:07 07/16/24 11:21 Temperature 98.6 F 100.7 F H Pulse Rate 102 H 97 Respiratory Rate 56 H 24 H Blood Pressure 124/72 133/60 Pulse Oximetry 95 95 93 Oxygen Delivery Nasal Cannula Oxygen Flow Rate 2 07/16/24 12:00 Temperature Pulse Rate Respiratory Rate Blood Pressure Pulse Oximetry 93 Oxygen Delivery Nasal Cannula Oxygen Flow Rate 2 Intake/Output Intake/Output: Intake & Output 07/13/24 07/14/24 07/15/24 07/16/24 23:59 23:59 23:59 23:59 Intake Total 1600 1480 Output Total 600 Balance 1600 880 Meds/Results Medications: Active Medications Generic Name Dose Route Start Last Admin Trade Name Freq PRN Reason Stop Dose Admin Acetaminophen 1,000 mg 07/15/24 12:27 Acetaminophen 500 Mg Tablet PO Q6H PRN Mild Pain (1-3) or Fever Dexamethasone Sodium Phosphate 6 mg 07/16/24 09:00 07/16/24 09:30 Dexamethasone Sod Phos Inj 10 Mg/Ml 1 Ml Vial IV PUSH 07/25/24 09:01 6 mg DAILY SHANNEN Administration Dextrose 12.5 gm 07/15/24 12:27 Dextrose 50% 25 Gm/50 Ml Syringe IV PUSH PRN PRN Hypoglycemia Protocol Enoxaparin Sodium 100 mg 07/15/24 17:00 07/16/24 04:52 Enoxaparin 100 Mg/Ml Syringe SUB-Q 100 mg Q12H SHANNEN Administration Enoxaparin Sodium 30 mg 07/15/24 17:00 07/16/24 04:52 Enoxaparin 30 Mg/0.3 Ml Syringe SUB-Q 30 mg Q12H SHANNEN Administration Glucagon 1 mg 07/15/24 12:27 Glucagon For Inj 1 Mg Vial IM PRN PRN Hypoglycemia Protocol Glucose 15 gm 07/15/24 12:27 Glucose Oral Gel 15 Gm Of Glucse In 37.5 Gm Tube PO PRN PRN Hypoglycemia Protocol Remdesivir 100 mg in 250 mls @ 250 mls/hr 07/16/24 10:00 07/16/24 11:37 IVPB 07/19/24 10:59 250 mls/hr Q24H SHANNEN Administration Ceftriaxone Sodium 1 gm in 50 mls @ 100 mls/hr 07/16/24 09:00 07/16/24 09:25 Rocephin 1 Gm/Ns 50 Ml IVPB 100 mls/hr Q24H SHANNEN Administration Azithromycin 500 mg in 250 mls @ 250 mls/hr 07/16/24 09:00 07/16/24 09:55 Zithromax IVPB 250 mls/hr Q24H SHANNEN Administration Dextrose 1,000 mls @ 100 mls/hr 07/15/24 12:27 Dextrose 5% 1,000 Ml IVPB PRN PRN Hypoglycemia Protocol Ondansetron HCl 4 mg 07/15/24 12:27 Ondansetron Inj 4 Mg/2 Ml Vial IV PUSH Q4H PRN Nausea Radiology Results: ITS Impressions Chest CTA 07/15/24 11:20 IMPRESSION: 1. Multifocal pneumonia throughout both lungs with likely reactive mild mediastinal lymphadenopathy. 2. No evident pulmonary embolism with sensitivity decreased in the segmental and more significantly in the subsegmental pulmonary arteries which is of multifactorial etiology. Labs Labs: Laboratory Results - last 24 hr 07/15/24 07/16/24 21:58 09:04 WBC 6.7 RBC 5.06 Hgb 14.0 Hct 43.9 MCV 86.8 MCH 27.7 MCHC 31.9 L RDW 14.1 Plt Count 171 MPV 11.3 H Immature Gran % (Auto) 0.4 Neut % (Auto) 59.1 Lymph % (Auto) 30.8 Esmeralda % (Auto) 9.4 H Eos % (Auto) 0.0 Baso % (Auto) 0.3 Lymph # (Auto) 2.07 [place]mer[place]da # (Auto) 0.6 Eos # (Auto) 0.0 Baso # (Auto) 0.0 Abs Immat Gran (auto) 0.03 Absolute Neuts (auto) 4.0 Absolute Nucleated RBC 0.000 Nucleated RBC % 0.0 Sodium 141 Potassium 5.2 H Chloride 110 H Carbon Dioxide 22 Anion Gap 9 BUN 15 Creatinine 0.80 Estim Creat Clear Calc 188 Estimated GFR > 60 Glucose 212 H POC Capillary Glucose 264 H Calcium 8.6 Magnesium 2.5 H Ferritin 282.00 Total Bilirubin 0.6 AST 65 H ALT 54 H Alkaline Phosphatase 100 Total Protein 8.0 Albumin 3.8 Procalcitonin 0.1
--- NOTE | 2024-07-16 16:02 | PHAR ---
Pharmacy verified home med: * Use from home * Brexpiprazole [Rexulti] 4 mg tablet Take 1 tablet by mouth once daily
[2024-07-16 16:10] LABS: Glucose Point of Care 254 mg/dl (65-105)
[2024-07-16 16:33] LABS: Potassium 5.1 mmol/L (3.4-5.0)
[2024-07-16 17:12] LABS: MRSA (PCR) NOT DETECTED (NOT DETECTE)
[2024-07-16] MEDS: cloNIDine HCL 0.05 MG TABLET PO (17:38)
[2024-07-16] MEDS: metFORMIN HCL 500 MG TABLET PO (17:39)
[2024-07-16] MEDS: DIVALPROEX SODIUM DR 250 MG TABEC 500 MG PO (17:40)
[2024-07-16] MEDS: BREXPIPRAZOLE 4 MG 4 EACH PO (17:40)
[2024-07-16 18:09] LABS: Glucose Point of Care 296 mg/dl (65-105)
[2024-07-16] MEDS: INSULIN ASPART (*BKC) 100 UNITS/ML SUB-Q (18:09)
[2024-07-16 18:56] LABS: Influenza A QL RT-PCR Negative (Negative); Influenza B QL RT-PCR Negative (Negative); RSV RNA, RT-PCR Negative (Negative); SARS-CoV-2 RNA PCR Positive (Negative)
--- NOTE | 2024-07-16 20:33 | PC.NURSE ---
This patient, Edwardo Lam, was transferred to [facility] on 07/16/24 at 1835. Personal belongings sent with patient. Report given to GUS Chavez. Appropriate documentation sent with patient.
[2024-07-16 21:07] LABS: Glucose Point of Care 245 mg/dl (65-105)
[2024-07-16] MEDS: DOXEPIN HCL 25 MG CAPSULE 100 MG PO (21:15)
[2024-07-16] MEDS: ACETAMINOPHEN 500 MG TABLET 1000 MG PO (21:22)
[2024-07-17] VITALS (7 sets, daily range): BP systolic 126–130; BP diastolic 68–85; PULSE 82–85; RESP 22–26; TEMP 36.2–36.6; O2SAT 92–94
[2024-07-17 06:27] LABS: Basophils Percent Auto 0.5 % (0.2-1.2); Eosinophils Percent Auto 0.2 % (0-4.4); Hematocrit 42.5 % (42.0-52.0); Hemoglobin 13.5 g/dL (14.0-18.0); Immature Granulocyte Absolute 0.07 K/mm3 (0.00-0.031); Immature Granulocyte Percent A 1.2 % (0-0.5); Lymphocytes Absolute Auto 2.41 K/mm3 (0.9-3.2); Lymphocytes Percent Auto 39.6 % (18.3-44.2); Mean Corpuscular HGB Conc 31.8 g/dl (32-36); Mean Corpuscular Hemoglobin 27.6 pg (26-34); Mean Corpuscular Volume 86.7 fl (80-100); Mean Platelet Volume 10.5 fl (7.4-10.4); Monocytes Absolute Auto 0.8 K/mm3 (0.1-0.6); Monocytes Percent Auto 12.5 % (2.6-8.5); Neutrophils Absolute Auto 2.8 K/mm3 (1.3-6.7); Platelet Count Result 207 k/mm3 (150-375); Red Cell Distribution Width 14.1 % (11.5-14.5); White Blood Count 6.1 K/mm3 (4.5-10.0)
[2024-07-17 06:51] LABS: Alanine Aminotransferase 132 U/L (6-50); Albumin Level 3.7 g/dL (3.5-5.1); Alkaline Phosphatase 88 U/L (38-126); Anion Gap 5 mmol/L (4-12); Aspartate Amino Transferase 142 U/L (17-59); Bilirubin,Total 0.5 mg/dL (0.2-1.3); Blood Urea Nitrogen 17 mg/dL (9-20); Calcium 8.8 mg/dL (8.4-10.2); Carbon Dioxide 29 mmol/L (22-30); Chloride 108 mmol/L (98-107); Estimated CRCL calculation 213 ml/min; Estimated Glomerular Filt Rate > 60; Glucose 177 mg/dL (65-110); Potassium 4.6 mmol/L (3.4-5.0); Sodium 142 mmol/L (137-145)
[2024-07-17 08:02] LABS: Hemoglobin A1C 6.8 % (<5.7)
[2024-07-17 08:03] LABS: Glucose Point of Care 153 mg/dl (65-105)
[2024-07-17] MEDS: DIVALPROEX SODIUM DR 250 MG TABEC 500 MG PO ×2 (09:41→17:52)
[2024-07-17] MEDS: metFORMIN HCL 500 MG TABLET PO ×2 (09:42→17:52)
[2024-07-17] MEDS: AZITHROMYCIN 250 MG TABLET PO (09:42)
[2024-07-17] MEDS: REMDESIVIR 100 MG/NS 250 ML 100 MG/250 ML BAG 250 MG IVPB (09:42)
[2024-07-17] MEDS: cloNIDine HCL 0.05 MG TABLET PO ×2 (09:42→18:06)
[2024-07-17] MEDS: SERTRALINE HCL 50 MG TABLET 100 MG PO (09:42)
[2024-07-17] MEDS: dexAMETHasone SOD PHOS INJ 10 MG/ML 1 ML VIAL 6 MG IV PUSH (09:47)
[2024-07-17] MEDS: ENOXAPARIN 40 MG/0.4 ML SYRINGE SUB-Q (09:47)
[2024-07-17 12:05] LABS: Glucose Point of Care 165 mg/dl (65-105)
--- NOTE | 2024-07-17 13:00 | PM.IMPN ---
Progress Note: A&P Assessment and Plan (1) Acute hypoxic respiratory failure: Code(s): J96.01 - Acute respiratory failure with hypoxia Status: Acute Assessment and Plan: Patient tested positive for COVID at home on 07/10 who presents with shortness of breath and found to be hypoxic. Febrile on admission. WBC normal. BNP 32. Troponin negative. Lactic 1.2. PCT 0.2 -> 0.1. Was 86% on room air. Stable on 2L CTA Chest showing no PE but with multifocal PNA. COVID with possible superimposed bacterial PNA. Started on Rocephin and Azithromycin once BCx collected. BCx NGTD No pulm history reported. Cont. with supplemental oxygen, titrate for >94%. (2) Multifocal pneumonia: Code(s): J18.9 - Pneumonia, unspecified organism Status: Acute Assessment and Plan: As above (3) COVID-19: Code(s): U07.1 - COVID-19 Status: Acute Assessment and Plan: Patient day 7 since diagnosis with worsening shortness of breath, hypoxia, and fevers. CTA negative for PE but consistent with PNA. COVID positive here as well Remdesivir and dexamethasone started Covid precautions. 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 Follow (5) Diabetes mellitus: Code(s): E11.9 - Type 2 diabetes mellitus without complications Status: Acute Assessment and Plan: A1c 6.8. The patient's blood glucose was reviewed on 07/17 Glucose elevated due to steroids Continue AccuCheks covering with sliding scale. Hypoglycemia protocol available as needed. Continue to monitor Plan Hyperkalemia -potassium level slightly elevated probably related to hemolysis from difficult blood draw. Potassium level normal now. Follow Elevated LFTs -LFTs were mildly elevated most likely related to viral illness and/or medications. No pain on exam. Repeat values higher. Check RUQ US and hepatitis panel. Constipation - add miralax DVT Prophylaxis - Lovenox Code status - full Subjective Date/time seen: 07/17/24 13:00 Interval history: 24yo male with developmental delay, autism and psychiatric illnesses here for SOB. Patient is alert but confused and unable to provide history. Family at bedside. Normally walks with walker. No BM for 5 days. Review of Systems Review of Systems: ROS unobtainable: Yes unobtainable due to medical condition Exam Narrative: Tm 100.7 97.5 130/71 82 24 92% 2L Gen - NARD Chest - distant BS CV - RRR S1/S2 Abd - Soft, obese, NT Ext - No pedal edema Neuro - Alert but confused. follows commands Psych - Nml mood and affect Skin - Warm and dry Objective Data Vital Signs Vital Signs: Vital Signs - 24 hr 07/16/24 14:00 07/16/24 15:16 07/16/24 16:00 Temperature 99.3 F Pulse Rate 100 95 98 Respiratory Rate 28 H Blood Pressure 143/71 H Pulse Oximetry 94 Oxygen Delivery Oxygen Flow Rate 07/16/24 16:00 07/16/24 18:00 07/16/24 20:00 Temperature Pulse Rate 98 Respiratory Rate Blood Pressure Pulse Oximetry 94 95 Oxygen Delivery Nasal Cannula Nasal Cannula Oxygen Flow Rate 2 2 07/16/24 21:40 07/17/24 05:28 07/17/24 08:00 Temperature 97.2 F L 97.5 F L Pulse Rate 84 82 Respiratory Rate 26 H 24 H Blood Pressure 131/67 130/71 Pulse Oximetry 95 93 92 Oxygen Delivery Nasal Cannula Oxygen Flow Rate 2 07/17/24 08:13 Temperature Pulse Rate Respiratory Rate Blood Pressure Pulse Oximetry 92 Oxygen Delivery Nasal Cannula Oxygen Flow Rate 2 Intake/Output Intake/Output: Intake & Output 07/14/24 07/15/24 07/16/24 07/17/24 23:59 23:59 23:59 23:59 Intake Total 1600 2020 1030 Output Total 1400 350 Balance 1600 620 680 Meds/Results Medications: Active Medications Generic Name Dose Route Start Last Admin Trade Name Freq PRN Reason Stop Dose Admin Acetaminophen 1,000 mg 07/15/24 12:27 07/16/24 21:22 Acetaminophen 500 Mg Tablet PO 1,000 mg Q6H PRN Administration Mild Pain (1-3) or Fever Azithromycin 250 mg 07/17/24 09:00 07/17/24 09:42 Azithromycin 250 Mg Tablet PO 07/19/24 09:01 250 mg DAILY SHANNEN Administration Clonidine HCl 0.05 mg 07/16/24 17:00 07/17/24 09:42 Clonidine Hcl 0.05 Mg Tablet PO 0.05 mg BID SHANNEN Administration Dexamethasone Sodium Phosphate 6 mg 07/16/24 09:00 07/17/24 09:47 Dexamethasone Sod Phos Inj 10 Mg/Ml 1 Ml Vial IV PUSH 07/25/24 09:01 6 mg DAILY SHANNEN Administration Dextrose 12.5 gm 07/15/24 12:27 Dextrose 50% 25 Gm/50 Ml Syringe IV PUSH PRN PRN Hypoglycemia Protocol Divalproex Sodium 500 mg 07/16/24 17:00 07/17/24 09:[address] 250 Mg Tabec PO 500 mg BID SHANNEN Administration Doxepin HCl 100 mg 07/16/24 21:00 07/16/24 21:15 Doxepin Hcl 25 Mg Capsule PO 100 mg HS SHANNEN Administration Enoxaparin Sodium 40 mg 07/17/24 09:00 07/17/24 09:47 Enoxaparin 40 Mg/0.4 Ml Syringe SUB-Q 40 mg DAILY SHANNEN Administration Glucagon 1 mg 07/15/24 12:27 Glucagon For Inj 1 Mg Vial IM PRN PRN Hypoglycemia Protocol Glucose 15 gm 07/15/24 12:27 Glucose Oral Gel 15 Gm Of Glucse In 37.5 Gm Tube PO PRN PRN Hypoglycemia Protocol Hydroxyzine Pamoate 100 mg 07/16/24 15:42 Hydroxyzine Pamoate 25 Mg Capsule PO TID PRN itching Remdesivir 100 mg in 250 mls @ 250 mls/hr 07/16/24 10:00 07/17/24 09:42 IVPB 07/19/24 10:59 250 mls/hr Q24H SHANNEN Administration Ceftriaxone Sodium 1 gm in 50 mls @ 100 mls/hr 07/16/24 09:00 07/17/24 09:42 Rocephin 1 Gm/Ns 50 Ml IVPB 100 mls/hr Q24H SHANNEN Administration Dextrose 1,000 mls @ 100 mls/hr 07/15/24 12:27 Dextrose 5% 1,000 Ml IVPB PRN PRN Hypoglycemia Protocol Insulin Aspart 4 - 8 units 07/16/24 17:00 07/17/24 12:10 Insulin Aspart (*Bkc) 100 Units/Ml SUB-Q Not Given TIDWM SHANNEN Protocol Metformin HCl 500 mg 07/16/24 17:00 07/17/24 09:42 Metformin Hcl 500 Mg Tablet PO 500 mg BID SHANNEN Administration * Home Med * 4 mg 07/16/24 16:05 07/16/24 17:40 Brexpiprazole [ PO 08/15/24 16:04 4 mg Rexulti] 4 Mg Tablet DAILY SHANNEN Administration Sertraline HCl 100 mg 07/17/24 09:00 07/17/24 09:42 Sertraline Hcl 50 Mg Tablet PO 100 mg DAILY SHANNEN Administration Radiology Results: ITS Impressions Chest CTA 07/15/24 11:20 IMPRESSION: 1. Multifocal pneumonia throughout both lungs with likely reactive mild mediastinal lymphadenopathy. 2. No evident pulmonary embolism with sensitivity decreased in the segmental and more significantly in the subsegmental pulmonary arteries which is of multifactorial etiology. Labs Labs: Laboratory Results - last 24 hr 07/16/24 07/16/24 07/16/24 15:12 15:37 16:15 WBC RBC Hgb Hct MCV MCH MCHC RDW Plt Count MPV Immature Gran % (Auto) Neut % (Auto) Lymph % (Auto) [place] % (Auto) Eos % (Auto) Baso % (Auto) Lymph # (Auto) [place] # (Auto) Eos # (Auto) Baso # (Auto) Abs Immat Gran (auto) Absolute Neuts (auto) Absolute Nucleated RBC Nucleated RBC % Sodium Potassium 5.1 H Chloride Carbon Dioxide Anion Gap BUN Creatinine Estim Creat Clear Calc Estimated GFR Glucose POC Capillary Glucose 254 H Hemoglobin A1c Calcium Total Bilirubin AST ALT Alkaline Phosphatase C-Reactive Protein Total Protein Albumin Nasal MRSA (PCR) Not detected Influenza A (RT-PCR) Influenza B (RT-PCR) RSV (RT-PCR) SARS-CoV-2 RNA (RT-PCR) 07/16/24 07/16/24 07/16/24 17:59 18:16 20:49 WBC RBC Hgb Hct MCV MCH MCHC RDW Plt Count MPV Immature Gran % (Auto) Neut % (Auto) Lymph % (Auto) [place] % (Auto) Eos % (Auto) Baso % (Auto) Lymph # (Auto) [place] # (Auto) Eos # (Auto) Baso # (Auto) Abs Immat Gran (auto) Absolute Neuts (auto) Absolute Nucleated RBC Nucleated RBC % Sodium Potassium Chloride Carbon Dioxide Anion Gap BUN Creatinine Estim Creat Clear Calc Estimated GFR Glucose POC Capillary Glucose 296 H 245 H Hemoglobin A1c Calcium Total Bilirubin AST ALT Alkaline Phosphatase C-Reactive Protein Total Protein Albumin Nasal MRSA (PCR) Influenza A (RT-PCR) Negative Influenza B (RT-PCR) Negative RSV (RT-PCR) Negative SARS-CoV-2 RNA (RT-PCR) Positive A 07/17/24 07/17/24 07/17/24 06:06 07:36 11:33 WBC 6.1 RBC 4.90 Hgb 13.5 L Hct 42.5 MCV 86.7 MCH 27.6 MCHC 31.8 L RDW 14.1 Plt Count 207 MPV 10.5 H Immature Gran % (Auto) 1.2 H Neut % (Auto) 46.0 Lymph % (Auto) 39.6 [place] % (Auto) 12.5 H Eos % (Auto) 0.2 Baso % (Auto) 0.5 Lymph # (Auto) 2.41 [place] # (Auto) 0.8 H Eos # (Auto) 0.0 Baso # (Auto) 0.0 Abs Immat Gran (auto) 0.07 H Absolute Neuts (auto) 2.8 Absolute Nucleated RBC 0.000 Nucleated RBC % 0.0 Sodium 142 Potassium 4.6 Chloride 108 H Carbon Dioxide 29 Anion Gap 5 BUN 17 Creatinine 0.70 Estim Creat Clear Calc 213 Estimated GFR > 60 Glucose 177 H POC Capillary Glucose 153 H 165 H Hemoglobin A1c 6.8 H Calcium 8.8 Total Bilirubin 0.5 AST 142 H ALT 132 H Alkaline Phosphatase 88 C-Reactive Protein 5.0 H Total Protein 7.0 Albumin 3.7 Nasal MRSA (PCR) Influenza A (RT-PCR) Influenza B (RT-PCR) RSV (RT-PCR) SARS-CoV-2 RNA (RT-PCR)
[2024-07-17 16:32] LABS: Glucose Point of Care 228 mg/dl (65-105)
[2024-07-17] MEDS: polyethylene glycoL 3350 17 GM POWD.PACK PO (17:52)
[2024-07-17] MEDS: INSULIN ASPART (*BKC) 100 UNITS/ML SUB-Q (17:52)
[2024-07-17] MEDS: DOXEPIN HCL 25 MG CAPSULE 100 MG PO (20:36)
--- NOTE | 2024-07-17 21:12 | ECG_ITS ---
Test Date: 2024-07-17 21:30:59 Measurements Intervals Stuart Rate: 91 P: 30 CO: 190 QRS: 47 QRSD: 79 T: 12 QT: 344 QTc: 425 Interpretive Statements SINUS RHYTHM NONSPECIFIC T-WAVE ABNORMALITY Compared to ECG 07/15/2024 14:52:16 No significant changes Electronically Signed On 07-18-2024 10:22:02 PIPELINE SUPERINTENDENT by Wellington Serna M.D.
[2024-07-17] MEDS: NITROGLYCERIN SL 0.4 MG TABLET SUBLINGUAL (21:21)
--- NOTE | 2024-07-17 21:29 | PM.EVENT ---
Event Note Event Note Event Note: Acute chest pain Patient here for COVID with hypoxia with history of XXYY syndrome, mother at bedside Patient is complaining of acute chest pain and abdominal pain, unable to state if it is reproducible with palpation EKG, nitro, troponins, BNP and CMP chest x-ray and KUB ordered EKG shows normal sinus rhythm Wet read on KUB shows bowel dilation patient NPO, suppository and fleets ordered On labs AST and ALT continue to rise, troponins are negative Chest pain is likely due to patient coughing frequently Robitussin ordered 35 minutes critical care time at bedside included reviewing images and updating family
[2024-07-17] MEDS: guaiFENesin/DEXTROMETHORPHAN 10 ML UDC 5 ML PO (21:41)
[2024-07-17] MEDS: ASPIRIN 81 MG CHEWABLE TABLET 324 MG PO (21:41)
[2024-07-17 21:45] LABS: Glucose Point of Care 164 mg/dl (65-105)
[2024-07-17] MEDS: ACETAMINOPHEN 500 MG TABLET 1000 MG PO (21:50)
[2024-07-17 21:53] LABS: Basophils Percent Auto 0.7 % (0.2-1.2); Eosinophils Percent Auto 0.2 % (0-4.4); Hematocrit 41.4 % (42.0-52.0); Hemoglobin 13.5 g/dL (14.0-18.0); Immature Granulocyte Absolute 0.19 K/mm3 (0.00-0.031); Immature Granulocyte Percent A 3.2 % (0-0.5); Lymphocytes Absolute Auto 2.43 K/mm3 (0.9-3.2); Mean Corpuscular HGB Conc 32.6 g/dl (32-36); Mean Corpuscular Hemoglobin 27.7 pg (26-34); Monocytes Absolute Auto 0.5 K/mm3 (0.1-0.6); Neutrophils Absolute Auto 2.7 K/mm3 (1.3-6.7); Neutrophils Percent Auto 45.9 % (45.5-73.1); Platelet Count Result 232 k/mm3 (150-375); Red Blood Count 4.87 M/mm3 (4.6-6.20); Red Cell Distribution Width 13.9 % (11.5-14.5); White Blood Count 5.9 K/mm3 (4.5-10.0)
[2024-07-17 22:04] LABS: INR 1.1; Prothrombin Time 14.3 Seconds (11.1-14.7)
[2024-07-17 22:05] LABS: Partial Thromboplastin Time 30.3 Seconds (22.3-36.8)
[2024-07-17 22:12] LABS: Alanine Aminotransferase 192 U/L (6-50); Albumin Level 3.6 g/dL (3.5-5.1); Alkaline Phosphatase 99 U/L (38-126); Anion Gap 4 mmol/L (4-12); Aspartate Amino Transferase 203 U/L (17-59); Bilirubin,Total 0.6 mg/dL (0.2-1.3); Blood Urea Nitrogen 16 mg/dL (9-20); Calcium 8.6 mg/dL (8.4-10.2); Carbon Dioxide 30 mmol/L (22-30); Chloride 107 mmol/L (98-107); Estimated CRCL calculation 245 ml/min; Estimated Glomerular Filt Rate > 60; Glucose 162 mg/dL (65-110); Lipase 119 U/L (23-300); Potassium 4.7 mmol/L (3.4-5.0); Sodium 141 mmol/L (137-145)
[2024-07-17 22:23] LABS: Troponin I < 0.012 ng/mL (0.000-0.034)
[2024-07-18] MEDS: BISACODYL 10 MG SUPPOSITORY RECTAL (01:02)
[2024-07-18 01:26] LABS: Troponin I < 0.012 ng/mL (0.000-0.034)
[2024-07-18 04:40] LABS: Basophils Absolute Auto 0.1 K/mm3 (0.0-0.1); Basophils Percent Auto 0.8 % (0.2-1.2); Eosinophils Percent Auto 0.5 % (0-4.4); Hematocrit 40.3 % (42.0-52.0); Hemoglobin 13.2 g/dL (14.0-18.0); Immature Granulocyte Absolute 0.21 K/mm3 (0.00-0.031); Immature Granulocyte Percent A 3.3 % (0-0.5); Lymphocytes Absolute Auto 3.25 K/mm3 (0.9-3.2); Lymphocytes Percent Auto 51.1 % (18.3-44.2); Mean Corpuscular HGB Conc 32.8 g/dl (32-36); Mean Corpuscular Hemoglobin 27.8 pg (26-34); Mean Corpuscular Volume 84.8 fl (80-100); Mean Platelet Volume 9.9 fl (7.4-10.4); Monocytes Absolute Auto 0.6 K/mm3 (0.1-0.6); Monocytes Percent Auto 9.3 % (2.6-8.5); Neutrophils Absolute Auto 2.2 K/mm3 (1.3-6.7); Platelet Count Result 258 k/mm3 (150-375); Red Blood Count 4.75 M/mm3 (4.6-6.20); Red Cell Distribution Width 13.9 % (11.5-14.5); White Blood Count 6.4 K/mm3 (4.5-10.0)
[2024-07-18 04:50] LABS: Alanine Aminotransferase 262 U/L (6-50); Albumin Level 3.4 g/dL (3.5-5.1); Alkaline Phosphatase 92 U/L (38-126); Anion Gap 3 mmol/L (4-12); Aspartate Amino Transferase 281 U/L (17-59); Bilirubin,Total 0.5 mg/dL (0.2-1.3); Blood Urea Nitrogen 18 mg/dL (9-20); Calcium 8.5 mg/dL (8.4-10.2); Carbon Dioxide 33 mmol/L (22-30); Chloride 106 mmol/L (98-107); Estimated CRCL calculation 213 ml/min; Estimated Glomerular Filt Rate > 60; Glucose 138 mg/dL (65-110); Potassium 4.1 mmol/L (3.4-5.0); Sodium 142 mmol/L (137-145)
[2024-07-18 05:01] LABS: Troponin I < 0.012 ng/mL (0.000-0.034)
[2024-07-18 05:35] LABS: Hepatitis B Surface Antigen Negative (Negative)
[2024-07-18 05:41] LABS: HAV RESULT Negative (Negative); Hepatitis B Core IgM Result Negative (Negative)
[2024-07-18 05:52] LABS: Hepatitis C Virus Antibody Negative (Negative)
[2024-07-18 05:57] VITALS: BP 130/63; PULSE 73; RESP 28; TEMP 36.4; O2SAT 93
[2024-07-18 05:58] LABS: Valproic Acid 51.1 ug/mL (50-120)
[2024-07-18 08:13] LABS: Glucose Point of Care 138 mg/dl (65-105)
[2024-07-18] MEDS: dexAMETHasone SOD PHOS INJ 10 MG/ML 1 ML VIAL 6 MG IV PUSH (09:23)
[2024-07-18] MEDS: ENOXAPARIN 40 MG/0.4 ML SYRINGE SUB-Q (09:24)
[2024-07-18] MEDS: cloNIDine HCL 0.05 MG TABLET PO ×2 (09:24→17:36)
[2024-07-18] MEDS: SERTRALINE HCL 50 MG TABLET 100 MG PO (09:24)
[2024-07-18] MEDS: polyethylene glycoL 3350 17 GM POWD.PACK PO (09:24)
[2024-07-18] MEDS: AZITHROMYCIN 250 MG TABLET PO (09:24)
[2024-07-18] MEDS: metFORMIN HCL 500 MG TABLET PO ×2 (09:24→17:36)
[2024-07-18] MEDS: DIVALPROEX SODIUM DR 250 MG TABEC 500 MG PO ×2 (09:24→17:36)
[2024-07-18] MEDS: REMDESIVIR 100 MG/NS 250 ML 100 MG/250 ML BAG 250 MG IVPB (10:12)
[2024-07-18 12:06] LABS: Glucose Point of Care 201 mg/dl (65-105)
--- NOTE | 2024-07-18 12:37 | PM.IMPN ---
Progress Note: A&P Assessment and Plan (1) Acute hypoxic respiratory failure: Code(s): J96.01 - Acute respiratory failure with hypoxia Status: Acute Assessment and Plan: Patient tested positive for COVID at home on 07/10 who presents with shortness of breath and found to be hypoxic. Febrile on admission. WBC normal. BNP 32. Troponin negative. Lactic 1.2. PCT 0.2 -> 0.1. Was 86% on room air. Stable on 2-3L CTA Chest showing no PE but with multifocal PNA. COVID with possible superimposed bacterial PNA. Started on Rocephin and Azithromycin once BCx collected. Started on Remdesivir and Dexamethasone. BCx NGTD No pulm history reported. Wean oxygen as tolerated Check sputum and urine Ag. Add IS. Add CPT. Start Mucinex. Add Duonebs. Aspiration precautions. ST consult (2) COVID-19: Code(s): U07.1 - COVID-19 Status: Acute Assessment and Plan: Patient day 8 since diagnosis with worsening shortness of breath, hypoxia, and fevers. CTA negative for PE but consistent with PNA. COVID positive here as well Remdesivir and dexamethasone started CRP was 5. 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 No indiction for tocilizumab of baricitinib. 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 Follow (5) Diabetes mellitus: Code(s): E11.9 - Type 2 diabetes mellitus without complications Status: Acute Assessment and Plan: A1c 6.8. The patient's blood glucose was reviewed on 07/18 Glucose elevated due to steroids but better today Continue AccuCheks covering with sliding scale. Hypoglycemia protocol available as needed. Continue to monitor (6) Chest pain: Code(s): R07.9 - Chest pain, unspecified Status: Acute Assessment and Plan: Patient having chest pain last night. Cross cover note reviewed. ASA given EKG showing no change. Troponin negative x3. CXR showing diffuse lung disease. [place] related to coughing. Follow. Treat symptomatically (7) Elevated LFTs: Code(s): R79.89 - Other specified abnormal findings of blood chemistry Status: Acute Assessment and Plan: LFTs were mildly elevated on admission most likely related to viral illness and/or medications. No pain on exam. Repeat values higher. RUQ US showing possible cholecystitis. Hepatitis panel negative. Related to Remdesivir? Not at a level where Remdesivir needs to be stopped and benefits>> risks at this time. Follow Plan Hyperkalemia -potassium level slightly elevated probably related to hemolysis from difficult blood draw. Potassium level normal now. Follow Constipation - Miralax started. KUB showing moderate volume of stool in colon and gaseous distention of the sigmoid colon consistent with adynamic ileus vs obstruction. Dulcolax added. having small BMs. No n/v. Will increase activity. Follow. Repeat imaging in the morning. DVT Prophylaxis - Lovenox Code status - full Subjective Date/time seen: 07/18/24 12:38 Interval history: 24yo male with developmental delay, autism and psychiatric illnesses here for SOB. Patient is alert but confused and unable to provide history. Family at bedside. Having small stools now. Patient was complaining of CP overnight and [employer] team called. Per patient: Feels SOB but he denies CP or abd pain. Slept well. Per mom: patietn was up at night complaining of abd pain and slept poorly. Review of Systems Review of Systems: ROS unobtainable: Yes unobtainable due to medical condition Exam Narrative: AF 97.6 130/63 73 28 93% 3L Gen - NARD Chest - distant clear BS CV - RRR S1/S2 Abd - Soft, obese, NT Ext - No pedal edema Neuro - Alert but confused. follows commands. able to stand with therapist and take a few steps to the chair. Psych - Nml mood and affect. became anxious and SOB after walking to the chair but he calmed easily. Skin - Warm and dry Objective Data Vital Signs Vital Signs: Vital Signs - 24 hr 07/17/24 14:00 07/17/24 20:00 07/17/24 20:55 Temperature 97.8 F 97.1 F L Pulse Rate 85 83 Respiratory Rate 22 H 26 H Blood Pressure 126/85 130/68 Pulse Oximetry 94 92 92 Oxygen Delivery Nasal Cannula Oxygen Flow Rate 2 07/17/24 22:00 07/18/24 05:57 07/18/24 08:50 Temperature 97.2 F L 97.6 F Pulse Rate 85 73 Respiratory Rate 26 H 28 H Blood Pressure 130/68 130/63 Pulse Oximetry 93 93 Oxygen Delivery Nasal Cannula Oxygen Flow Rate 3 Intake/Output Intake/Output: Intake & Output 07/15/24 07/16/24 07/17/24 07/18/24 23:59 23:59 23:59 23:59 Intake Total 1600 2020 1450 240 Output Total 3111 867 1463 Balance 1600 620 900 -935 Meds/Results Medications: Active Medications Generic Name Dose Route Start Last Admin Trade Name Freq PRN Reason Stop Dose Admin Acetaminophen 1,000 mg 07/15/24 12:27 07/17/24 21:50 Acetaminophen 500 Mg Tablet PO 1,000 mg Q6H PRN Administration Mild Pain (1-3) or Fever Azithromycin 250 mg 07/17/24 09:00 07/18/24 09:24 Azithromycin 250 Mg Tablet PO 07/19/24 09:01 250 mg DAILY SHANNEN Administration Bisacodyl 10 mg 07/18/24 09:00 Bisacodyl 10 Mg Suppository RECTAL QAM SHANNEN Clonidine HCl 0.05 mg 07/16/24 17:00 07/18/24 09:24 Clonidine Hcl 0.05 Mg Tablet PO 0.05 mg BID SHANNEN Administration Dexamethasone Sodium Phosphate 6 mg 07/16/24 09:00 07/18/24 09:23 Dexamethasone Sod Phos Inj 10 Mg/Ml 1 Ml Vial IV PUSH 07/25/24 09:01 6 mg DAILY SHANNEN Administration Dextrose 12.5 gm 07/15/24 12:27 Dextrose 50% 25 Gm/50 Ml Syringe IV PUSH PRN PRN Hypoglycemia Protocol Divalproex Sodium 500 mg 07/16/24 17:00 07/18/24 09:[address] 250 Mg Tabec PO 500 mg BID SHANNEN Administration Doxepin HCl 100 mg 07/16/24 21:00 07/17/24 20:36 Doxepin Hcl 25 Mg Capsule PO 100 mg HS SHANNEN Administration Enoxaparin Sodium 40 mg 07/17/24 09:00 07/18/24 09:24 Enoxaparin 40 Mg/0.4 Ml Syringe SUB-Q 40 mg DAILY SHANNEN Administration Glucagon 1 mg 07/15/24 12:27 Glucagon For Inj 1 Mg Vial IM PRN PRN Hypoglycemia Protocol Glucose 15 gm 07/15/24 12:27 Glucose Oral Gel 15 Gm Of Glucse In 37.5 Gm Tube PO PRN PRN Hypoglycemia Protocol Guaifenesin/Dextromethorphan 5 ml 07/17/24 21:27 07/17/24 21:41 Guaifenesin/Dextromethorphan 10 Ml Udc PO 5 ml Q4H PRN Administration Cough Hydroxyzine Pamoate 100 mg 07/16/24 15:42 Hydroxyzine Pamoate 25 Mg Capsule PO TID PRN itching Remdesivir 100 mg in 250 mls @ 250 mls/hr 07/16/24 10:00 07/18/24 10:12 IVPB 07/19/24 10:59 250 mls/hr Q24H SHANNEN Administration Ceftriaxone Sodium 1 gm in 50 mls @ 100 mls/hr 07/16/24 09:00 07/18/24 09:24 Rocephin 1 Gm/Ns 50 Ml IVPB 100 mls/hr Q24H SHANNEN Administration Dextrose 1,000 mls @ 100 mls/hr 07/15/24 12:27 Dextrose 5% 1,000 Ml IVPB PRN PRN Hypoglycemia Protocol Insulin Aspart 4 - 8 units 07/16/24 17:00 07/18/24 09:36 Insulin Aspart (*Bkc) 100 Units/Ml SUB-Q Not Given TIDWM SHANNEN Protocol Metformin HCl 500 mg 07/16/24 17:00 07/18/24 09:24 Metformin Hcl 500 Mg Tablet PO 500 mg BID SHANNEN Administration Nitroglycerin 0.4 mg 07/17/24 21:12 Nitroglycerin Sl 0.4 Mg Tablet SUBLINGUAL Q5MIN PRN Chest Pain * Home Med * 4 mg 07/16/24 16:05 07/17/24 18:12 Brexpiprazole [ PO 08/15/24 16:04 Not Given Rexulti] 4 Mg Tablet DAILY SHANNEN Polyethylene Glycol 17 gm 07/17/24 13:30 07/18/24 09:24 Polyethylene Glycol 3350 17 Gm Powd.Pack PO 17 gm QAM SHANNEN Administration Sertraline HCl 100 mg 07/17/24 09:00 07/18/24 09:24 Sertraline Hcl 50 Mg Tablet PO 100 mg DAILY SHANNEN Administration Radiology Results: ITS Impressions Chest CTA 07/15/24 11:20 IMPRESSION: 1. Multifocal pneumonia throughout both lungs with likely reactive mild mediastinal lymphadenopathy. 2. No evident pulmonary embolism with sensitivity decreased in the segmental and more significantly in the subsegmental pulmonary arteries which is of multifactorial etiology. [place] Ultrasound 07/17/24 19:56 IMPRESSION: Suspected cholelithiasis Abdomen X-Ray 07/18/24 06:09 IMPRESSION: 1. Distended sigmoid colon, consistent with adynamic ileus versus obstruction. Chest X-Ray 07/18/24 06:53 IMPRESSION: 1. Diffuse lung disease, consistent with pneumonia. Labs Labs: Laboratory Results - last 24 hr 07/17/24 07/17/24 07/17/24 16:25 20:43 21:46 WBC 5.9 RBC 4.87 Hgb 13.5 L Hct 41.4 L MCV 85.0 MCH 27.7 MCHC 32.6 RDW 13.9 Plt Count 232 MPV 10.0 Immature Gran % (Auto) 3.2 H Neut % (Auto) 45.9 Lymph % (Auto) 41.0 [place] % (Auto) 9.0 H Eos % (Auto) 0.2 Baso % (Auto) 0.7 Lymph # (Auto) 2.43 [place] # (Auto) 0.5 Eos # (Auto) 0.0 Baso # (Auto) 0.0 Abs Immat Gran (auto) 0.19 H Absolute Neuts (auto) 2.7 Absolute Nucleated RBC 0.000 Nucleated RBC % 0.0 PT 14.3 INR 1.1 APTT 30.3 Sodium 141 Potassium 4.7 Chloride 107 Carbon Dioxide 30 Anion Gap 4 BUN 16 Creatinine 0.60 L Estim Creat Clear Calc 245 Estimated GFR > 60 Glucose 162 H POC Capillary Glucose 228 H 164 H Calcium 8.6 Total Bilirubin 0.6 AST 203 H ALT 192 H Alkaline Phosphatase 99 Troponin I < 0.012 Total Protein 7.0 Albumin 3.6 Lipase 119 Valproic Acid Hepatitis A IgM Ab Hep Bs Antigen Hep B Core IgM Ab Hepatitis C Ab Screen 07/18/24 07/18/24 07/18/24 00:55 04:28 07:52 WBC 6.4 RBC 4.75 Hgb 13.2 L Hct 40.3 L MCV 84.8 MCH 27.8 MCHC 32.8 RDW 13.9 Plt Count 258 MPV 9.9 Immature Gran % (Auto) 3.3 H Neut % (Auto) 35.0 L Lymph % (Auto) 51.1 H [place] % (Auto) 9.3 H Eos % (Auto) 0.5 Baso % (Auto) 0.8 Lymph # (Auto) 3.25 H [place] # (Auto) 0.6 Eos # (Auto) 0.0 Baso # (Auto) 0.1 Abs Immat Gran (auto) 0.21 H Absolute Neuts (auto) 2.2 Absolute Nucleated RBC 0.000 Nucleated RBC % 0.0 PT INR APTT Sodium 142 Potassium 4.1 Chloride 106 Carbon Dioxide 33 H Anion Gap 3 L BUN 18 Creatinine 0.70 Estim Creat Clear Calc 213 Estimated GFR > 60 Glucose 138 H POC Capillary Glucose 138 H Calcium 8.5 Total Bilirubin 0.5 AST 281 H ALT 262 H Alkaline Phosphatase 92 Troponin I < 0.012 < 0.012 Total Protein 7.0 Albumin 3.4 L Lipase Valproic Acid 51.1 Hepatitis A IgM Ab Negative Hep Bs Antigen Negative Hep B Core IgM Ab Negative Hepatitis C Ab Screen Negative 07/18/24 11:36 WBC RBC Hgb Hct MCV MCH MCHC RDW Plt Count MPV Immature Gran % (Auto) Neut % (Auto) Lymph % (Auto) [place] % (Auto) Eos % (Auto) Baso % (Auto) Lymph # (Auto) [place] # (Auto) Eos # (Auto) Baso # (Auto) Abs Immat Gran (auto) Absolute Neuts (auto) Absolute Nucleated RBC Nucleated RBC % PT INR APTT Sodium Potassium Chloride Carbon Dioxide Anion Gap BUN Creatinine Estim Creat Clear Calc Estimated GFR Glucose POC Capillary Glucose 201 H Calcium Total Bilirubin AST ALT Alkaline Phosphatase Troponin I Total Protein Albumin Lipase Valproic Acid Hepatitis A IgM Ab Hep Bs Antigen Hep B Core IgM Ab Hepatitis C Ab Screen
[2024-07-18 14:00] VITALS: BP 131/64; PULSE 76; RESP 18; TEMP 36.6; O2SAT 92; O2SAT 96
[2024-07-18 17:15] LABS: Glucose Point of Care 218 mg/dl (65-105)
[2024-07-18] MEDS: LORazepam INJ (*CRX) 2 MG/ML VIAL 1 MG IV PUSH (17:35)
[2024-07-18] MEDS: INSULIN ASPART (*BKC) 100 UNITS/ML SUB-Q (17:37)
[2024-07-18 20:00] VITALS: O2SAT 92
[2024-07-18] MEDS: DOXEPIN HCL 25 MG CAPSULE 100 MG PO (20:17)
[2024-07-18] MEDS: guaiFENesin 12 HR 600 MG TABCR PO (20:17)
[2024-07-18 22:09] VITALS: BP 130/84; PULSE 96; RESP 16; TEMP 36.3; O2SAT 94
[2024-07-19] VITALS (13 sets, daily range): BP systolic 111–132; BP diastolic 61–72; PULSE 71–103; RESP 16–22; TEMP 36.4–36.8; O2SAT 94–97
--- NOTE | 2024-07-19 | ECHO_ITS ---
Patient Info Name: Edwardo Lam Age: 24 years : 2000 Gender: Male Ht: 77 in Wt: 292 lbs BSA: 2.72 m2 HR: 90 bpm BP: 130 / 84 mmHg Heart Rhythm: Sinus Rhythm Technical Quality: Fair Exam Date: 07/19/2024 4:08 PM Exam Location: Echo Lab Patient Status: Inpatient Admit Date: 07/15/2024 Staff Ordering Physician: Forest Martin MD Hi Teacher: Jane Coreas RDCS Attending Provider: Paulette Davis MD Exam Type: CA echo dop color flow w con Study Info Indications - hypoxia Complete two-dimensional, color flow and Doppler transthoracic echocardiogram is performed with contrast to opacify the left ventricle and to improve the deliniation of the left ventricle endocardial borders. Contrast/Agitated Saline Contrast/Ag. Saline: Definity Amount: 2.00 ml Administered By: Jane Coreas RDCS Existing IV Access: Yes IV Access Condition: patent with no signs of infiltration Summary 1. Technically difficult study with limited views. 2. The left ventricle is normal in size and systolic function. The left ventricular ejection fraction is visually estimated to be 65-70%. 3. The right ventricle is not well visualized however by tissue Doppler appears to have preserved systolic function. 4. There is no significant valvular disease. Left Ventricle The left ventricle is normal in size and systolic function. The left ventricular ejection fraction is visually estimated to be 65-70%. Right Ventricle The right ventricle is not well visualized however by tissue Doppler appears to have preserved systolic function. Left Atria The left atria is normal size. Right Atria The right atrium is normal size. Atrial Septum The atrial septum is not well visualized. Aortic Valve There is no aortic stenosis or regurgitation. Pulmonic Valve The pulmonic valve is not well visualized. There is no color Doppler evidence of pulmonic valve regurgitation. Mitral Valve The mitral valve is normal. There is no mitral regurgitation. Tricuspid Valve The tricuspid valve is grossly normal. There is trace tricuspid regurgitation. Pericardium/Pleural There is no pericardial effusion in the available views. Inferior Vena Cava Inferior vena cava is not well visualized. Aorta The aortic root is not well visualized. Left Ventricular Outflow Tract Name Value Normal LVOT 2D LVOT Diameter 1.96 cm LVOT Doppler LVOT Peak Gradient 5 mmHg LVOT Mean Gradient 3 mmHg LVOT VTI 17.53 cm LVOT VTI/AV VTI Ratio 0.68 LVOT Stroke Volume 52.74 ml LVOT CO 5.18 l/min LVOT CI 1.97 L/min/m2 Pulmonic Valve Name Value Normal RVOT Doppler RVOT Peak Gradient 6 mmHg PV Doppler PV Peak Gradient 9 mmHg Aorta Name Value Normal Ascending Aorta Ao Root Diameter (MM) 2.65 cm Ao Root Diam Index (MM) 0.98 cm/m2 Aortic Valve Name Value Normal AV Doppler AV Peak Velocity 172.09 cm/s AV Peak Gradient 12 mmHg AV Mean Gradient 6 mmHg AV VTI 25.66 cm AV Area (Cont Eq VTI) 2.06 cm2 >=3.00 AV Area (Cont Eq Byron) 1.86 cm2 AV Regurgitation 2D LVOT Area 3.01 cm2 Ventricles Name Value Normal LV Dimensions 2D/MM IVS Diastolic Thickness (2D) 1.01 cm 0.60-1.00 LVID Diastole (2D) 4.28 cm 4.20-5.80 LVIW Diastolic Thickness (2D) 0.97 cm 0.60-1.00 LVID Systole (2D) 2.51 cm 2.50-4.00 LVOT Diameter 1.96 cm LV Mass (2D Cubed) 140.14 g 88.00-224.00 LV Mass Index (2D Cubed) 0.01 g/cm2 0.00-0.01 Relative Wall Thickness (2D) 0.46 LV Fractional Shortening/Ejection Fraction 2D/MM LV Fractional Shortening (2D) 41 % 25-43 LV EF (2D Teicholz) 73 % 52-72 LV Diastolic Volume (4C MOD) 58.57 ml LV EF (4C MOD) 69 % LV Diastolic Volume (2C MOD) 48.77 ml LV EF (2C MOD) 60 % LV Diastolic Volume (BP MOD) 53.89 ml 62.00-150.00 LV Diastolic Volume Index (BP MOD) 0.02 l/m2 0.03-0.07 LV Systolic Volume (BP MOD) 18.87 ml 21.00-61.00 LV Systolic Volume Index (BP MOD) 0.01 l/m2 0.01-0.03 LV EF (BP MOD) 65 % 52-72 LV Diastolic Length (4C) 9.10 cm LV Systolic Length (4C) 7.09 cm LV Stroke Volume (4C MOD) 40.57 ml Atria Name Value Normal LA Dimensions LA Dimension (MM) 3.08 cm 3.00-4.10 LA Volume (4C A-L) 46.54 ml LA Volume (BP A-L) 41.50 ml RA Dimensions RA Area (4C) 17.78 cm2 <=18.00 Report Signatures
[2024-07-19] MEDS: IPRATROPIUM 0.5 MG/ALBUTEROL SULFATE 2.5 MG AMPUL.NEB 3 ML INHALATION ×4 (01:13→20:37)
[2024-07-19 06:49] LABS: Basophils Absolute Auto 0.1 K/mm3 (0.0-0.1); Basophils Percent Auto 1.2 % (0.2-1.2); Eosinophils Absolute Auto 0.1 K/mm3 (0-0.3); Eosinophils Percent Auto 0.9 % (0-4.4); Hematocrit 44.8 % (42.0-52.0); Hemoglobin 14.9 g/dL (14.0-18.0); Immature Granulocyte Absolute 0.45 K/mm3 (0.00-0.031); Immature Granulocyte Percent A 6.6 % (0-0.5); Mean Corpuscular HGB Conc 33.3 g/dl (32-36); Mean Corpuscular Hemoglobin 28.1 pg (26-34); Mean Corpuscular Volume 84.4 fl (80-100); Mean Platelet Volume 9.6 fl (7.4-10.4); Monocytes Absolute Auto 0.6 K/mm3 (0.1-0.6); Monocytes Percent Auto 9.3 % (2.6-8.5); Neutrophils Absolute Auto 2.1 K/mm3 (1.3-6.7); Nucleated Red Blood Cells Perc 0.3 % (0.0-0.2); Platelet Count Result 316 k/mm3 (150-375); Red Blood Count 5.31 M/mm3 (4.6-6.20); Red Cell Distribution Width 13.8 % (11.5-14.5); White Blood Count 6.9 K/mm3 (4.5-10.0)
[2024-07-19 07:25] LABS: Alanine Aminotransferase 341 U/L (6-50); Albumin Level 3.5 g/dL (3.5-5.1); Alkaline Phosphatase 105 U/L (38-126); Anion Gap 3 mmol/L (4-12); Aspartate Amino Transferase 208 U/L (17-59); Bilirubin,Total 0.5 mg/dL (0.2-1.3); Blood Urea Nitrogen 16 mg/dL (9-20); CRP 1.5 mg/dL (<1.0); Calcium 8.7 mg/dL (8.4-10.2); Carbon Dioxide 31 mmol/L (22-30); Chloride 106 mmol/L (98-107); Estimated CRCL calculation 215 ml/min; Estimated Glomerular Filt Rate > 60; Glucose 116 mg/dL (65-110); NT Pro B Type Natriuretic Pept 34 pg/mL (19.9-100); Potassium 3.9 mmol/L (3.4-5.0); Sodium 140 mmol/L (137-145)
[2024-07-19 08:42] LABS: Glucose Point of Care 134 mg/dl (65-105)
[2024-07-19 08:46] LABS: Glucose Point of Care 121 mg/dl (65-105)
[2024-07-19] MEDS: AZITHROMYCIN 250 MG TABLET PO (09:14)
[2024-07-19] MEDS: cloNIDine HCL 0.05 MG TABLET PO ×2 (09:14→16:47)
[2024-07-19] MEDS: guaiFENesin 12 HR 600 MG TABCR PO ×2 (09:14→21:46)
[2024-07-19] MEDS: SERTRALINE HCL 50 MG TABLET 100 MG PO (09:14)
[2024-07-19] MEDS: polyethylene glycoL 3350 17 GM POWD.PACK PO ×2 (09:14→16:47)
[2024-07-19] MEDS: DIVALPROEX SODIUM DR 250 MG TABEC 500 MG PO ×2 (09:14→16:47)
[2024-07-19] MEDS: metFORMIN HCL 500 MG TABLET PO ×2 (09:14→16:47)
--- NOTE | 2024-07-19 10:21 | PCOTNOTE ---
Attempted to see Patient for OT treatment session. Patient out of the room, down having a MBS, and an obstructive series.
[2024-07-19] MEDS: REMDESIVIR 100 MG/NS 250 ML 100 MG/250 ML BAG 250 MG IVPB (10:30)
[2024-07-19 11:26] LABS: Glucose Point of Care 180 mg/dl (65-105)
[2024-07-19] MEDS: dexAMETHasone SOD PHOS INJ 10 MG/ML 1 ML VIAL 6 MG IV PUSH (12:49)
[2024-07-19] MEDS: ENOXAPARIN 40 MG/0.4 ML SYRINGE SUB-Q (12:50)
[2024-07-19] MEDS: LORazepam INJ (*CRX) 2 MG/ML VIAL 1 MG IV PUSH (12:53)
--- NOTE | 2024-07-19 13:03 | PCOTNOTE ---
Attempted to see Patient for OT treatment session. Patient agitated at the time, yelling out for his mom. Therapist attempted to comfort and ask id he needed anything, Patient verbalizes, my Mom . Patient declined to participate in therapy services, states, No I can't move or breathe . Just need Mom . RN notified and aware, states he declines most activity or treatment without his mother present.
--- NOTE | 2024-07-19 14:11 | PCSTNOTE ---
Please refer to the Modified Barium Swallow Evaluation in the EMR.
[2024-07-19] MEDS: PERFLUTREN LIPID MICROSPHERES 1.5 ML VIAL DILUTED TO 10 ML TOTAL VOLUME IV PUSH (16:20)
[2024-07-19 16:46] LABS: Glucose Point of Care 248 mg/dl (65-105)
--- NOTE | 2024-07-19 16:52 | IVDEFINITY ---
Prior to administration of IV Definity the patient was educated on the risks and benefits of the imaging enhancing agent including potential adverse side effects. The patient verbalized understanding. Allergies were verified. No exclusion criteria were identified and at least one of the following inclusion criteria were met: 1) physician request, 2) patient technically difficult to image (per the [place] [employer] guidelines of two or more segments not discernable within the apical view), or 3) questionable left ventricular function. ?
--- NOTE | 2024-07-19 17:25 | PM.IMPN ---
Progress Note: A&P Assessment and Plan (1) Acute hypoxic respiratory failure: Code(s): J96.01 - Acute respiratory failure with hypoxia Status: Acute Assessment and Plan: Patient tested positive for COVID at home on 07/10 who presents with shortness of breath and found to be hypoxic. Febrile on admission. WBC normal. BNP 32. Troponin negative. Lactic 1.2. PCT 0.2 -> 0.1. Was 86% on room air. Stable on 2-3L CTA Chest showing no PE but with multifocal PNA. COVID with possible superimposed bacterial PNA. Started on Rocephin and Azithromycin once BCx collected. Started on Remdesivir and Dexamethasone. BCx NGTD. BNP 34 Speech had no concern about aspiration. No pulm history reported. Wean oxygen as tolerated. Continue IS and CPT. Continue Abx, COVID tx, Mucinex and Duonebs. Check Echo (2) COVID-19: Code(s): U07.1 - COVID-19 Status: Acute Assessment and Plan: Patient day 9 since diagnosis with worsening shortness of breath, hypoxia, and fevers. CTA negative for PE but consistent with PNA. COVID positive here as well Completed 5 days of Remdesivir. Continue dexamethasone CRP was 5 -> 1.5. CXR looks about the same (when compared to CT chest oil scout film) Covid precautions. Continue supportive care Wean O2 as toelrated (3) Multifocal pneumonia: Code(s): J18.9 - Pneumonia, unspecified organism Status: Acute Assessment and Plan: He completed 5 days of azithromycin. Continue Rocephin for 7 days of treatment. 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 Follow (5) Diabetes mellitus: Code(s): E11.9 - Type 2 diabetes mellitus without complications Status: Acute Assessment and Plan: A1c 6.8. The patient's blood glucose was reviewed on 07/19 Glucose elevated due to steroids Continue AccuCheks covering with sliding scale. Hypoglycemia protocol available as needed. Add lantus Continue to monitor (6) Chest pain: Code(s): R07.9 - Chest pain, unspecified Status: Acute Assessment and Plan: Patient having chest pain the other night. Cross cover note reviewed. ASA given EKG showing no change. Troponin negative x3. CXR showing diffuse lung disease. [place] related to coughing. Follow. Treat symptomatically (7) Elevated LFTs: Code(s): R79.89 - Other specified abnormal findings of blood chemistry Status: Acute Assessment and Plan: LFTs were mildly elevated on admission most likely related to viral illness and/or medications. No pain on exam. RUQ US showing possible cholecystitis. Hepatitis panel negative. Related to Remdesivir? Not at a level where Remdesivir needs to be stopped and benefits>> risks at this time. Remdesivir completed. LFTs are coming down today. Follow (8) Constipation: Code(s): K59.00 - Constipation, unspecified Status: Acute Assessment and Plan: Constipation - Miralax started. KUB showing moderate volume of stool in colon and gaseous distention of the sigmoid colon consistent with adynamic ileus vs obstruction. Dulcolax added. having small BMs. No n/v. Repeat imaging today showing NSBGP with moderate to large amount of colonic gas and stool. Soap suds enema without much benefit Will increase activity. Advance miralaix. Continue dulcolax suppositories for now. Follow. Plan Hyperkalemia -potassium level slightly elevated probably related to hemolysis from difficult blood draw. Potassium level normal now. Follow DVT Prophylaxis - Lovenox Code status - full Subjective Date/time seen: 07/19/24 17:25 Interval history: 24yo male with developmental delay, autism and psychiatric illnesses here for SOB. Patient is alert but confused and unable to provide history. Family at bedside. Had small BM. Slep okay up until 4am when he became anxious with increasing SOB. No abd pain Review of Systems Review of Systems: ROS unobtainable: Yes unobtainable due to medical condition Exam Narrative: AF 97.5 115/72 89 20 94% 4L Gen - NARD Chest - few basilar crackles o/w clear. nml RR CV - RRR S1/S2 Abd - Soft, obese, NT Ext - No pedal edema Neuro - Alert but confused. Psych - Nml mood and affect. Skin - Warm and dry Objective Data Vital Signs Vital Signs: Vital Signs - 24 hr 07/18/24 20:00 07/18/24 22:09 07/19/24 01:14 Temperature 97.4 F L Pulse Rate 96 90 Respiratory Rate 16 22 H Blood Pressure 130/84 Pulse Oximetry 92 94 Oxygen Delivery Nasal Cannula Oxygen Flow Rate 3 Fraction of Inspired Oxygen 07/19/24 06:00 07/19/24 08:12 07/19/24 08:12 Temperature 97.8 F Pulse Rate 90 89 Respiratory Rate 16 20 Blood Pressure 111/64 Pulse Oximetry 94 94 Oxygen Delivery Nasal Cannula Oxygen Flow Rate 4 Fraction of Inspired Oxygen 36 07/19/24 08:32 07/19/24 08:42 07/19/24 14:00 Temperature 97.5 F L Pulse Rate 87 103 H Respiratory Rate 20 18 Blood Pressure 115/72 Pulse Oximetry 94 Oxygen Delivery Nasal Cannula Oxygen Flow Rate 4 Fraction of Inspired Oxygen 07/19/24 14:06 07/19/24 14:15 Temperature Pulse Rate 88 89 Respiratory Rate 20 20 Blood Pressure Pulse Oximetry Oxygen Delivery Oxygen Flow Rate Fraction of Inspired Oxygen Intake/Output Intake/Output: Intake & Output 07/16/24 07/17/24 07/18/24 07/19/24 23:59 23:59 23:59 23:59 Intake Total 2020 1450 780 300 Output Total 8003 612 5184 Balance 620 900 -1420 300 Meds/Results Medications: Active Medications Generic Name Dose Route Start Last Admin Trade Name Freq PRN Reason Stop Dose Admin Acetaminophen 1,000 mg 07/15/24 12:27 07/17/24 21:50 Acetaminophen 500 Mg Tablet PO 1,000 mg Q6H PRN Administration Mild Pain (1-3) or Fever Albuterol/Ipratropium 3 ml 07/18/24 14:00 07/19/24 14:06 Ipratropium 0.5 Mg/Albuterol Sulfate 2.5 Mg Ampul.Neb 3 Ml INHALATION 3 ml Q6HRT SHANNEN Administration Bisacodyl 10 mg 07/18/24 09:00 07/19/24 16:47 Bisacodyl 10 Mg Suppository RECTAL Not Given QAM SHANNEN Clonidine HCl 0.05 mg 07/16/24 17:00 07/19/24 16:47 Clonidine Hcl 0.05 Mg Tablet PO 0.05 mg BID SHANNEN Administration Dexamethasone Sodium Phosphate 6 mg 07/16/24 09:00 07/19/24 12:49 Dexamethasone Sod Phos Inj 10 Mg/Ml 1 Ml Vial IV PUSH 07/25/24 09:01 6 mg DAILY SHANNEN Administration Dextrose 12.5 gm 07/15/24 12:27 Dextrose 50% 25 Gm/50 Ml Syringe IV PUSH PRN PRN Hypoglycemia Protocol Divalproex Sodium 500 mg 07/16/24 17:00 07/19/24 16:[address] 250 Mg Tabec PO 500 mg BID SHANNEN Administration Doxepin HCl 100 mg 07/16/24 21:00 07/18/24 20:17 Doxepin Hcl 25 Mg Capsule PO 100 mg HS SHANNEN Administration Enoxaparin Sodium 40 mg 07/17/24 09:00 07/19/24 12:50 Enoxaparin 40 Mg/0.4 Ml Syringe SUB-Q 40 mg DAILY SHANNEN Administration Glucagon 1 mg 07/15/24 12:27 Glucagon For Inj 1 Mg Vial IM PRN PRN Hypoglycemia Protocol Glucose 15 gm 07/15/24 12:27 Glucose Oral Gel 15 Gm Of Glucse In 37.5 Gm Tube PO PRN PRN Hypoglycemia Protocol Guaifenesin 600 mg 07/18/24 21:00 07/19/24 09:14 Guaifenesin 12 Hr 600 Mg Tabcr PO 600 mg Q12HR SHANNEN Administration Guaifenesin/Dextromethorphan 5 ml 07/17/24 21:27 07/17/24 21:41 Guaifenesin/Dextromethorphan 10 Ml Udc PO 5 ml Q4H PRN Administration Cough Hydroxyzine Pamoate 100 mg 07/16/24 15:42 Hydroxyzine Pamoate 25 Mg Capsule PO TID PRN itching Ceftriaxone Sodium 1 gm in 50 mls @ 100 mls/hr 07/16/24 09:00 07/19/24 09:16 Rocephin 1 Gm/Ns 50 Ml IVPB 100 mls/hr Q24H SHANNEN Administration Dextrose 1,000 mls @ 100 mls/hr 07/15/24 12:27 Dextrose 5% 1,000 Ml IVPB PRN PRN Hypoglycemia Protocol Insulin Aspart 4 - 8 units 07/16/24 17:00 07/19/24 12:33 Insulin Aspart (*Bkc) 100 Units/Ml SUB-Q Not Given TIDWM SHANNEN Protocol Lorazepam 1 mg 07/19/24 11:16 07/19/24 12:53 Lorazepam Inj (*Crx) 2 Mg/Ml Vial IV PUSH 1 mg Q6H PRN Administration Anxiety Metformin HCl 500 mg 07/16/24 17:00 07/19/24 16:47 Metformin Hcl 500 Mg Tablet PO 500 mg BID SHANNEN Administration Nitroglycerin 0.4 mg 07/17/24 21:12 Nitroglycerin Sl 0.4 Mg Tablet SUBLINGUAL Q5MIN PRN Chest Pain * Home Med * 4 mg 07/16/24 16:05 07/19/24 12:32 Brexpiprazole [ PO 08/15/24 16:04 Not Given Rexulti] 4 Mg Tablet DAILY SHANNEN Polyethylene Glycol 17 gm 07/19/24 17:00 07/19/24 16:47 Polyethylene Glycol 3350 17 Gm Powd.Pack PO 17 gm BID SHANNEN Administration Sertraline HCl 100 mg 07/17/24 09:00 07/19/24 09:14 Sertraline Hcl 50 Mg Tablet PO 100 mg DAILY SHANNEN Administration Radiology Results: ITS Impressions Chest CTA 07/15/24 11:20 IMPRESSION: 1. Multifocal pneumonia throughout both lungs with likely reactive mild mediastinal lymphadenopathy. 2. No evident pulmonary embolism with sensitivity decreased in the segmental and more significantly in the subsegmental pulmonary arteries which is of multifactorial etiology. Upper Quadrant Ultrasound 07/17/24 19:56 IMPRESSION: Suspected cholelithiasis Chest X-Ray 07/18/24 06:53 IMPRESSION: 1. Diffuse lung disease, consistent with pneumonia. Abdomen X-Ray 07/19/24 10:41 IMPRESSION: 1. Nonspecific bowel gas pattern with moderate to large amount of colonic gas and stool. No free intraperitoneal gas or dilated gas-filled loops of bowel to suggest obstruction. 2. Decreasing opacities in the bilateral lower lungs consistent with improving pulmonary edema or pneumonia. Modified Barium Swallow 07/19/24 11:00 IMPRESSION: 1. Normal modified barium swallow. 2. Please refer to the speech therapy report for recommendations. Labs Labs: Laboratory Results - last 24 hr 07/19/24 07/19/24 07/19/24 00:19 06:27 08:38 WBC 6.9 RBC 5.31 Hgb 14.9 Hct 44.8 MCV 84.4 MCH 28.1 MCHC 33.3 RDW 13.8 Plt Count 316 MPV 9.6 Immature Gran % (Auto) 6.6 H Neut % (Auto) 31.0 L Lymph % (Auto) 51.0 H [place] % (Auto) 9.3 H Eos % (Auto) 0.9 Baso % (Auto) 1.2 Lymph # (Auto) 3.50 H [place] # (Auto) 0.6 Eos # (Auto) 0.1 Baso # (Auto) 0.1 Abs Immat Gran (auto) 0.45 H Absolute Neuts (auto) 2.1 Absolute Nucleated RBC 0.020 H Nucleated RBC % 0.3 H Sodium 140 Potassium 3.9 Chloride 106 Carbon Dioxide 31 H Anion Gap 3 L BUN 16 Creatinine 0.70 Estim Creat Clear Calc 215 Estimated GFR > 60 Glucose 116 H POC Capillary Glucose 134 H 121 H Calcium 8.7 Total Bilirubin 0.5 AST 208 H ALT 341 H Alkaline Phosphatase 105 C-Reactive Protein 1.5 H NT-Pro-B Natriuret Pep 34 Total Protein 7.0 Albumin 3.5 07/19/24 07/19/24 11:16 16:43 WBC RBC Hgb Hct MCV MCH MCHC RDW Plt Count MPV Immature Gran % (Auto) Neut % (Auto) Lymph % (Auto) [place] % (Auto) Eos % (Auto) Baso % (Auto) Lymph # (Auto) [place] # (Auto) Eos # (Auto) Baso # (Auto) Abs Immat Gran (auto) Absolute Neuts (auto) Absolute Nucleated RBC Nucleated RBC % Sodium Potassium Chloride Carbon Dioxide Anion Gap BUN Creatinine Estim Creat Clear Calc Estimated GFR Glucose POC Capillary Glucose 180 H 248 H Calcium Total Bilirubin AST ALT Alkaline Phosphatase C-Reactive Protein NT-Pro-B Natriuret Pep Total Protein Albumin
[2024-07-19] MEDS: INSULIN ASPART (*BKC) 100 UNITS/ML SUB-Q (18:00)
[2024-07-19] MEDS: DOXEPIN HCL 25 MG CAPSULE 100 MG PO (21:46)
[2024-07-19] MEDS: INSULIN GLARGINE (*BKC) 100 UNITS/ML 10 UNITS SUB-Q (22:11)
[2024-07-19] MEDS: ACETAMINOPHEN 500 MG TABLET 1000 MG PO (22:11)
[2024-07-19 23:04] LABS: Glucose Point of Care 188 mg/dl (65-105)
[2024-07-20] VITALS (11 sets, daily range): BP systolic 128–137; BP diastolic 46–66; PULSE 76–86; RESP 18–22; TEMP 36.3–37; O2SAT 92–96
[2024-07-20] MEDS: IPRATROPIUM 0.5 MG/ALBUTEROL SULFATE 2.5 MG AMPUL.NEB 3 ML INHALATION ×4 (01:49→19:59)
[2024-07-20 06:38] LABS: Alanine Aminotransferase 288 U/L (6-50); Albumin Level 3.4 g/dL (3.5-5.1); Alkaline Phosphatase 103 U/L (38-126); Anion Gap 2 mmol/L (4-12); Aspartate Amino Transferase 135 U/L (17-59); Bilirubin,Total 0.6 mg/dL (0.2-1.3); Blood Urea Nitrogen 15 mg/dL (9-20); Calcium 8.5 mg/dL (8.4-10.2); Carbon Dioxide 32 mmol/L (22-30); Chloride 107 mmol/L (98-107); Estimated CRCL calculation 215 ml/min; Estimated Glomerular Filt Rate > 60; Glucose 116 mg/dL (65-110); Potassium 3.3 mmol/L (3.4-5.0); Sodium 141 mmol/L (137-145)
[2024-07-20 08:01] LABS: Glucose Point of Care 125 mg/dl (65-105)
[2024-07-20] MEDS: guaiFENesin 12 HR 600 MG TABCR PO ×2 (09:07→20:42)
[2024-07-20] MEDS: polyethylene glycoL 3350 17 GM POWD.PACK PO (09:07)
[2024-07-20] MEDS: SERTRALINE HCL 50 MG TABLET 100 MG PO (09:07)
[2024-07-20] MEDS: cloNIDine HCL 0.05 MG TABLET PO ×2 (09:07→16:54)
[2024-07-20] MEDS: DIVALPROEX SODIUM DR 250 MG TABEC 500 MG PO ×2 (09:07→16:55)
[2024-07-20] MEDS: BISACODYL 10 MG SUPPOSITORY RECTAL (09:09)
[2024-07-20] MEDS: BREXPIPRAZOLE 4 MG 4 EACH PO (09:09)
[2024-07-20] MEDS: dexAMETHasone SOD PHOS INJ 10 MG/ML 1 ML VIAL 6 MG IV PUSH (09:09)
[2024-07-20] MEDS: POTASSIUM CHLORIDE 20 MEQ ER TABLET 40 MEQ PO (09:09)
[2024-07-20] MEDS: ENOXAPARIN 40 MG/0.4 ML SYRINGE SUB-Q (09:10)
[2024-07-20 11:48] LABS: Glucose Point of Care 225 mg/dl (65-105)
[2024-07-20] MEDS: LORazepam INJ (*CRX) 2 MG/ML VIAL 1 MG IV PUSH ×2 (13:15→20:53)
[2024-07-20 16:59] LABS: Glucose Point of Care 167 mg/dl (65-105)
--- NOTE | 2024-07-20 18:17 | P.PNIM_ITS ---
Progress Note: A&P Assessment and Plan (1) Acute hypoxic respiratory failure: Code(s): J96.01 - Acute respiratory failure with hypoxia Status: Acute Assessment and Plan: Patient tested positive for COVID at home on 07/10 who presents with shortness of breath and found to be hypoxic. Febrile on admission. WBC normal. BNP 32. Troponin negative. Lactic 1.2. PCT 0.2 -> 0.1. MRSA nasal swab negative. Was 86% on room air. Stable on supplemental O2 CTA Chest showing no PE but with multifocal PNA. COVID with possible superimposed bacterial PNA. Started on Rocephin and Azithromycin once BCx collected. Started on Remdesivir and Dexamethasone. BCx NGTD. Repeat BNP 34. Echo was normal. Speech had no concern about aspiration. No pulm history reported. Wean oxygen as tolerated. Continue IS and CPT. Continue Abx to complete a course. Continue current COVID tx, Mucinex and Duonebs. Pulm consulted (2) COVID-19: Code(s): U07.1 - COVID-19 Status: Acute Assessment and Plan: Patient COVID positive on 07/10 who presents with worsening shortness of breath, hypoxia, and fevers. CTA negative for PE but consistent with PNA. COVID positive here as well Completed 5 days of Remdesivir. Continue dexamethasone CRP was 5 -> 1.5. CXR looks about the same (when compared to CT chest liability claims examiner film) Covid precautions. Continue supportive care Wean O2 as tolerated (3) Multifocal pneumonia: Code(s): J18.9 - Pneumonia, unspecified organism Status: Acute Assessment and Plan: He completed 5 days of azithromycin. Continue Rocephin for 7 days of treatment. 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 Has ativan available as needed for anxiety/panic attacks Follow (5) Diabetes mellitus: Code(s): E11.9 - Type 2 diabetes mellitus without complications Status: Acute Assessment and Plan: A1c 6.8. The patient's blood glucose was reviewed on 07/20 Glucose elevated due to steroids Continue AccuCheks covering with sliding scale. Hypoglycemia protocol available as needed. Glucose better with lantus Continue to monitor (6) Chest pain: Code(s): R07.9 - Chest pain, unspecified Status: Acute Assessment and Plan: Patient having chest pain the other night. Cross cover note reviewed. ASA given EKG showing no change. Troponin negative x3. CXR showing diffuse lung disease. [place] related to coughing. Follow. Treat symptomatically (7) Elevated LFTs: Code(s): R79.89 - Other specified abnormal findings of blood chemistry Status: Acute Assessment and Plan: LFTs were mildly elevated on admission most likely related to viral illness and/or medications. No pain on exam. RUQ US showing possible cholecystitis but felt less likely. Hepatitis panel negative. Related to Remdesivir? Remdesivir completed. LFTs are coming down Follow (8) Constipation: Code(s): K59.00 - Constipation, unspecified Status: Acute Assessment and Plan: Constipation - Miralax started. KUB showing moderate volume of stool in colon and gaseous distention of the sigmoid colon consistent with adynamic ileus vs obstruction. Dulcolax added. No n/v. Repeat KUB showing nonspecific bowel gas pattern with moderate to large amount of colonic gas and stool. Large BM today. Continue miralaix but decrease frequency. Follow. Plan Hyperkalemia -potassium level slightly elevated probably related to hemolysis from difficult blood draw. Potassium level low now. Replace. Follow DVT Prophylaxis - Lovenox Code status - full Subjective Date/time seen: 07/20/24 18:17 Interval history: 24yo male with developmental delay, autism and psychiatric illnesses here for SOB. Patient is alert but confused and unable to provide history. Family at bedside. large BM today. Not eating much. He denies feeling SOB. Still with dry cough. he has been getting anxious especially when he is active. Exam Narrative: AF 97.4 137/66 85 20 92% 4L Gen - NARD Chest - distant BS to quiet respirations. nml RR CV - RRR S1/S2 Abd - Soft, obese, NT Ext - No pedal edema Neuro - Alert but confused. Psych - upset at times and anxious but was able to redirect Skin - Warm and dry Objective Data Vital Signs Vital Signs: Vital Signs - 24 hr 07/19/24 20:00 07/19/24 20:37 07/19/24 20:49 Temperature Pulse Rate 77 Respiratory Rate 20 Blood Pressure Pulse Oximetry 97 94 Oxygen Delivery Nasal Cannula Nasal Cannula Oxygen Flow Rate 4 4 07/19/24 20:50 07/19/24 22:00 07/20/24 01:49 Temperature 98.2 F Pulse Rate 84 71 84 Respiratory Rate 20 18 20 Blood Pressure 132/61 Pulse Oximetry 97 Oxygen Delivery Oxygen Flow Rate 07/20/24 01:55 07/20/24 06:00 07/20/24 07:05 Temperature 97.4 F L Pulse Rate 82 84 85 Respiratory Rate 20 18 20 Blood Pressure 137/66 Pulse Oximetry 96 Oxygen Delivery Oxygen Flow Rate 07/20/24 07:15 07/20/24 07:54 07/20/24 08:00 Temperature Pulse Rate 86 85 Respiratory Rate 20 20 Blood Pressure Pulse Oximetry 95 92 Oxygen Delivery Nasal Cannula Nasal Cannula Oxygen Flow Rate 4 4 Intake/Output Intake/Output: Intake & Output 07/17/24 07/18/24 07/19/24 07/20/24 23:59 23:59 23:59 23:59 Intake Total 1450 780 350 780 Output Total 550 2200 800 Balance 900 -1420 350 -20 Meds/Results Medications: Active Medications Generic Name Dose Route Start Last Admin Trade Name Freq PRN Reason Stop Dose Admin Acetaminophen 1,000 mg 07/15/24 12:27 07/19/24 22:11 Acetaminophen 500 Mg Tablet PO 1,000 mg Q6H PRN Administration Mild Pain (1-3) or Fever Albuterol/Ipratropium 3 ml 07/18/24 14:00 07/20/24 13:05 Ipratropium 0.5 Mg/Albuterol Sulfate 2.5 Mg Ampul.Neb 3 Ml INHALATION 3 ml Q6HRT SHANNEN Administration Bisacodyl 10 mg 07/18/24 09:00 07/20/24 09:09 Bisacodyl 10 Mg Suppository RECTAL 10 mg QAM SHANNEN Administration Clonidine HCl 0.05 mg 07/16/24 17:00 07/20/24 16:54 Clonidine Hcl 0.05 Mg Tablet PO 0.05 mg BID SHANNEN Administration Dexamethasone Sodium Phosphate 6 mg 07/16/24 09:00 07/20/24 09:09 Dexamethasone Sod Phos Inj 10 Mg/Ml 1 Ml Vial IV PUSH 07/25/24 09:01 6 mg DAILY SHANNEN Administration Dextrose 12.5 gm 07/15/24 12:27 Dextrose 50% 25 Gm/50 Ml Syringe IV PUSH PRN PRN Hypoglycemia Protocol Divalproex Sodium 500 mg 07/16/24 17:00 07/20/24 16:[address] 250 Mg Tabec PO 500 mg BID SHANNEN Administration Doxepin HCl 100 mg 07/16/24 21:00 07/19/24 21:46 Doxepin Hcl 25 Mg Capsule PO 100 mg HS SHANNEN Administration Enoxaparin Sodium 40 mg 07/17/24 09:00 07/20/24 09:10 Enoxaparin 40 Mg/0.4 Ml Syringe SUB-Q 40 mg DAILY SHANNEN Administration Glucagon 1 mg 07/15/24 12:27 Glucagon For Inj 1 Mg Vial IM PRN PRN Hypoglycemia Protocol Glucose 15 gm 07/15/24 12:27 Glucose Oral Gel 15 Gm Of Glucse In 37.5 Gm Tube PO PRN PRN Hypoglycemia Protocol Guaifenesin 600 mg 07/18/24 21:00 07/20/24 09:07 Guaifenesin 12 Hr 600 Mg Tabcr PO 600 mg Q12HR SHANNEN Administration Guaifenesin/Dextromethorphan 5 ml 07/17/24 21:27 07/17/24 21:41 Guaifenesin/Dextromethorphan 10 Ml Udc PO 5 ml Q4H PRN Administration Cough Hydroxyzine Pamoate 100 mg 07/16/24 15:42 Hydroxyzine Pamoate 25 Mg Capsule PO TID PRN itching Ceftriaxone Sodium 1 gm in 50 mls @ 100 mls/hr 07/16/24 09:00 07/20/24 09:08 Rocephin 1 Gm/Ns 50 Ml IVPB 07/21/24 09:29 100 mls/hr Q24H SHANNEN Administration Dextrose 1,000 mls @ 100 mls/hr 07/15/24 12:27 Dextrose 5% 1,000 Ml IVPB PRN PRN Hypoglycemia Protocol Insulin Aspart 4 - 8 units 07/16/24 17:00 07/20/24 16:59 Insulin Aspart (*Bkc) 100 Units/Ml SUB-Q Not Given TIDWM SHANNEN Protocol Insulin Glargine 10 units 07/19/24 21:00 07/19/24 22:11 Insulin Glargine (*Bkc) 100 Units/Ml SUB-Q 10 units HS SHANNEN Administration Lorazepam 1 mg 07/19/24 11:16 07/20/24 13:15 Lorazepam Inj (*Crx) 2 Mg/Ml Vial IV PUSH 1 mg Q6H PRN Administration Anxiety Metformin HCl 500 mg 07/16/24 17:00 07/19/24 16:47 Metformin Hcl 500 Mg Tablet PO 500 mg BID SHANNEN Administration Nitroglycerin 0.4 mg 07/17/24 21:12 Nitroglycerin Sl 0.4 Mg Tablet SUBLINGUAL Q5MIN PRN Chest Pain * Home Med * 4 mg 07/16/24 16:05 07/20/24 09:09 Brexpiprazole [ PO 08/15/24 16:04 4 mg Rexulti] 4 Mg Tablet DAILY SHANNEN Administration Polyethylene Glycol 17 gm 07/19/24 17:00 07/20/24 16:59 Polyethylene Glycol 3350 17 Gm Powd.Pack PO Not Given BID SHANNEN Sertraline HCl 100 mg 07/17/24 09:00 07/20/24 09:07 Sertraline Hcl 50 Mg Tablet PO 100 mg DAILY SHANNEN Administration Radiology Results: ITS Impressions Chest CTA 07/15/24 11:20 IMPRESSION: 1. Multifocal pneumonia throughout both lungs with likely reactive mild mediastinal lymphadenopathy. 2. No evident pulmonary embolism with sensitivity decreased in the segmental and more significantly in the subsegmental pulmonary arteries which is of multifactorial etiology. Upper Quadrant Ultrasound 07/17/24 19:56 IMPRESSION: Suspected cholelithiasis Chest X-Ray 07/18/24 06:53 IMPRESSION: 1. Diffuse lung disease, consistent with pneumonia. Abdomen X-Ray 07/19/24 10:41 IMPRESSION: 1. Nonspecific bowel gas pattern with moderate to large amount of colonic gas and stool. No free intraperitoneal gas or dilated gas-filled loops of bowel to suggest obstruction. 2. Decreasing opacities in the bilateral lower lungs consistent with improving pulmonary edema or pneumonia. Modified Barium Swallow 07/19/24 11:00 IMPRESSION: 1. Normal modified barium swallow. 2. Please refer to the speech therapy report for recommendations. Labs Labs: Laboratory Results - last 24 hr 07/19/24 07/20/24 07/20/24 21:59 06:00 07:51 Sodium 141 Potassium 3.3 L Chloride 107 Carbon Dioxide 32 H Anion Gap 2 L BUN 15 Creatinine 0.70 Estim Creat Clear Calc 215 Estimated GFR > 60 Glucose 116 H POC Capillary Glucose 188 H 125 H Calcium 8.5 Total Bilirubin 0.6 AST 135 H ALT 288 H Alkaline Phosphatase 103 Total Protein 7.0 Albumin 3.4 L 07/20/24 07/20/24 11:41 16:31 Sodium Potassium Chloride Carbon Dioxide Anion Gap BUN Creatinine Estim Creat Clear Calc Estimated GFR Glucose POC Capillary Glucose 225 H 167 H Calcium Total Bilirubin AST ALT Alkaline Phosphatase Total Protein Albumin
[2024-07-20 19:51] LABS: Glucose Point of Care 169 mg/dl (65-105)
[2024-07-20] MEDS: DOXEPIN HCL 25 MG CAPSULE 100 MG PO (20:42)
[2024-07-20] MEDS: ACETAMINOPHEN 500 MG TABLET 1000 MG PO (20:42)
[2024-07-20] MEDS: INSULIN GLARGINE (*BKC) 100 UNITS/ML 10 UNITS SUB-Q (20:47)
[2024-07-21] VITALS (13 sets, daily range): BP systolic 113–133; BP diastolic 54–78; PULSE 70–106; RESP 18–22; TEMP 36.2–37; O2SAT 94–98
[2024-07-21] MEDS: IPRATROPIUM 0.5 MG/ALBUTEROL SULFATE 2.5 MG AMPUL.NEB 3 ML INHALATION ×4 (03:10→21:11)
[2024-07-21 06:21] LABS: Alanine Aminotransferase 264 U/L (6-50); Albumin Level 3.5 g/dL (3.5-5.1); Alkaline Phosphatase 98 U/L (38-126); Anion Gap 6 mmol/L (4-12); Aspartate Amino Transferase 119 U/L (17-59); Bilirubin,Total 0.5 mg/dL (0.2-1.3); Blood Urea Nitrogen 17 mg/dL (9-20); Calcium 8.9 mg/dL (8.4-10.2); Carbon Dioxide 28 mmol/L (22-30); Chloride 104 mmol/L (98-107); Estimated CRCL calculation 219 ml/min; Estimated Glomerular Filt Rate > 60; Glucose 205 mg/dL (65-110); Potassium 3.8 mmol/L (3.4-5.0); Sodium 138 mmol/L (137-145)
[2024-07-21 07:32] LABS: Glucose Point of Care 190 mg/dl (65-105)
[2024-07-21] MEDS: SERTRALINE HCL 50 MG TABLET 100 MG PO (09:20)
[2024-07-21] MEDS: BREXPIPRAZOLE 4 MG 4 EACH PO (09:20)
[2024-07-21] MEDS: dexAMETHasone SOD PHOS INJ 10 MG/ML 1 ML VIAL 6 MG IV PUSH (09:20)
[2024-07-21] MEDS: cloNIDine HCL 0.05 MG TABLET PO ×2 (09:20→17:44)
[2024-07-21] MEDS: guaiFENesin 12 HR 600 MG TABCR PO ×2 (09:20→20:27)
[2024-07-21] MEDS: polyethylene glycoL 3350 17 GM POWD.PACK PO (09:20)
[2024-07-21] MEDS: DIVALPROEX SODIUM DR 250 MG TABEC 500 MG PO ×2 (09:20→17:44)
[2024-07-21] MEDS: ENOXAPARIN 40 MG/0.4 ML SYRINGE SUB-Q (09:21)
[2024-07-21 11:40] LABS: Glucose Point of Care 196 mg/dl (65-105)
[2024-07-21 16:55] LABS: Glucose Point of Care 358 mg/dl (65-105)
--- NOTE | 2024-07-21 17:44 | PM.CNPUL ---
Assessment and Plan Assessment and plan (1) Acute hypoxic respiratory failure: Code(s): J96.01 - Acute respiratory failure with hypoxia Status: Acute Assessment and Plan: Initial saturation was 86% on room air, required O2 from 2 to 4.5 L since admission, now somewhere between 2 and 4 L with saturaiton above 94%. This can be weaned as tolerated. (2) COVID-19: Code(s): U07.1 - COVID-19 Status: Acute Assessment and Plan: (+) on home testing Jul 10; completed remdesivir for 5 days and currently is having his 10 day course of dexamethasone, inflammatory markers pH around July 18 to with AST and ALT, (3) Multifocal pneumonia: Code(s): J18.9 - Pneumonia, unspecified organism Status: Acute Assessment and Plan: Typical for COVID pneumonia Plan He is improving, responded to COVID specific treatment with remdesivir and dexamethasone, completed the 5 days of remdesivir. He is on low flow O2 somewhere between 2-4 L of oxygen per minute. He is over the worst of his COVID infection. I am not recommending any changes, will continue to follow with you. History of Present Illness History of Present Illness Consult date: 07/21/24 Requesting physician: Forest Martin MD Chief complaint: COVID/Hypoxia/Multifocal PNA/XXYY Narrative: This patient was seen Jul 21, 2024 at 19:40 Room 311 NEW: Edwardo Lam is a 24 year old man admitted with COVID from a home test on July 10 with multifocal pneumonia, hypoxia, wearing O2 by nasal cannula. He presented with shortness of breath and low oxygen saturation. He had a fever on admission. His white blood cell count was in the normal range. He had a normal lactic acid 1.2, normal troponin, normal BNP. Was 86% on presentation, currently on a nasal cannula at 4 L with a saturation between 94% - 98%. He was treated with 5 days of remdesivir and is currently continuing his 10 days of dexamethasone. He remains on ceftriaxone. CTA 07/15 showed no Pe and widespread multifocal pneumonia with reactive lymphadenopathy, see image below. His modified barium swallow was negative on 07/19/2024. his initial AST and ALT were normal, peaked on Jul 18 and , now decreasing. His blood glucose is running quite high, around 350. The patient is asking for crackers but his nurse tells me that he is not allowed to have anything crackers or sherbet now because his glucose is being monitored and treated. He cannot tell me if he had COVID vaccinations, but says that this is the first time he has had COVID, so this means that he likely was vaccinated. Most people have had one episode of COVID. He is not a completely reliable historian, but he is cooperative and pleasant. He said that I looked like his grandmother, and I am taking that as a compliment. 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 DATA * 07/19/24 modified barium swallow was normal * 07/18/24 CXR : IMPRESSION: 1. Diffuse lung disease, consistent with pneumonia. * 07/15/24 CTA : No evident pulmonary embolism. Sensitivity mildly decreased in the segmental and more significantly decrease in the subsegmental pulmonary arteries due to combination of mild motion artifact, good but suboptimal contrast opacification of the pulmonary arteries, streak artifact related to dense contrast in the superior vena cava and mild quantum mottle related to patient body habitus. Extensive bilateral patchy consolidation groundglass opacities throughout both lungs without evident septal line thickening to suggest pulmonary edema and would favor multifocal pneumonia. Heart size is normal. No pericardial effusion. Thoracic aorta is normal in caliber with no dissection. Likely reactive mild mediastinal lymphadenopathy. The bones and visualized portion of the upper abdomen are unremarkable. IMPRESSION: 1. Multifocal pneumonia throughout both lungs with likely reactive mild mediastinal lymphadenopathy. 2. No evident pulmonary embolism with sensitivity decreased in the segmental and more significantly in the subsegmental pulmonary arteries which is of multifactorial etiology. * , BNP is 32, normal. Procalcitonin 0.2, normal. ALT normal on admission, peaked at 3:41 a.m. on July 19, now July 21 down to 264. AST normal on admission, peaked at 281 on July 18, decreased to 119 on July 21 * 07/15/2024, swab negative for influenza a, influenza B, RSV, positive for SARS-CoV-2 * 07/15/2024, urinalysis, pH 5.5, 1+ protein, 2+ blood, 1+ bili, 11-20 rbc's, no bacteria, * 07/16/2024 MRSA swab negative Review of Systems Review of Systems: All systems reviewed & are unremarkable except as noted in HPI and below PMFSH Past Medical History Medical History (Updated 07/19/24 @ 17:40 by Forest Martin MD) Autism Diabetes mellitus XXYY syndrome Family History Family History (Updated 07/15/24 @ 22:01 by Jayda Santo RN) Mother Diabetes mellitus Fibromyalgia, primary Social History Social History Smoking status: Never smoker Alcohol intake: never Substance use: never Do You Feel Safe in your Home?: Yes Lack of Transportation: No Lack of Food: Never True Current Housing: I Have Housing Concerned About Future Housing: No Difficulty Paying Gas/Electric Bills: No Difficulty Paying for Meds: No Currently Unemployed: No Education: High School Diploma/GED Difficulty w/ Childcare or Family Care: No Spiritual care concerns: No Meds Home Medications and Allergies Home Medications ?Medication ?Instructions ?Recorded ?Confirmed ?Type brexpiprazole 4 mg tablet (Rexulti) 4 mg PO DAILY 07/15/24 07/15/24 History clonidine HCl 0.1 mg tablet 0.05 mg PO BID 07/15/24 07/15/24 History divalproex 500 mg tablet,delayed 500 mg PO BID 07/15/24 07/15/24 History release doxepin 100 mg capsule 100 mg PO HS 07/15/24 07/15/24 History hydroxyzine pamoate 50 mg capsule 100 mg PO TID PRN itching 07/15/24 07/15/24 History metformin 500 mg tablet 500 mg PO BID 07/15/24 07/15/24 History sertraline 100 mg tablet 100 mg PO DAILY 07/15/24 07/15/24 History Allergies Allergy/AdvReac Type Severity Reaction Status Date / Time oxycodone Allergy Mild Rash Verified 07/16/24 02:20 Vital Signs Vital Signs - 24 hr 07/20/24 20:00 07/20/24 20:05 07/20/24 20:05 Temperature Pulse Rate 76 Respiratory Rate 20 Blood Pressure Pulse Oximetry 95 94 Oxygen Delivery Nasal Cannula Nasal Cannula Oxygen Flow Rate 4 4 07/20/24 20:12 07/20/24 21:11 07/21/24 03:10 Temperature 37.0 C Pulse Rate 76 83 70 Respiratory Rate 20 22 H 20 Blood Pressure 128/46 L Pulse Oximetry 95 Oxygen Delivery Oxygen Flow Rate 07/21/24 03:24 07/21/24 05:28 07/21/24 07:35 Temperature 37.0 C Pulse Rate 72 80 Respiratory Rate 20 18 Blood Pressure 113/55 L Pulse Oximetry 97 94 Oxygen Delivery Nasal Cannula Oxygen Flow Rate 4 07/21/24 07:35 07/21/24 07:42 07/21/24 08:00 Temperature Pulse Rate 99 93 Respiratory Rate 20 20 Blood Pressure Pulse Oximetry 94 Oxygen Delivery Nasal Cannula Oxygen Flow Rate 4 07/21/24 14:00 07/21/24 14:04 07/21/24 14:13 Temperature 36.2 C L Pulse Rate 106 H 102 H 102 H Respiratory Rate 18 20 20 Blood Pressure 130/78 Pulse Oximetry 98 Oxygen Delivery Oxygen Flow Rate Exam Narrative: GEN: Alert, oriented, not in distress. Wearing O2 nasal cannula @4 L/min saturation 95%. He is stretched out in bed on his left side watching television, no distress. HEENT: pupils are equal, EOMI, symmetrical face; oral membranes moist, Mallampati III airway NECK: Trachea is midline CHEST: Equal air entry, symmetric excursion, scattered crackles both sides CV: Regular S1S2 no m/g/r ABD : (+) bowel sounds Extremities : no clubbing, cyanosis, or edema PSYCH: normal thought and speech, gait is not tested Results Laboratory Findings 07/19/24 06:27 07/21/24 06:03 ABG, PT/INR, D-dimer: PT/INR, D-dimer PT 14.3 Seconds (11.1-14.7) 07/17/24 21:46 INR 1.1 07/17/24 21:46 Abnormal lab findings: Abnormal Labs 07/15/24 07/15/24 07/15/24 10:31 12:16 21:58 Hgb Hct MCHC Plt Count 123 L MPV Immature Gran % (Auto) 0.9 H Neut % (Auto) Lymph % (Auto) [place] % (Auto) 10.9 H Lymph # (Auto) [place] # (Auto) Abs Immat Gran (auto) 0.04 H Absolute Nucleated RBC Nucleated RBC % Potassium Chloride 108 H Carbon Dioxide Anion Gap Creatinine Glucose 158 H POC Capillary Glucose 264 H Hemoglobin A1c Magnesium AST ALT 55 H C-Reactive Protein Albumin Ur Specific [place] 1.043 H Urine Protein 1+ H Urine Ketones Trace H Ur Blood (Man) 2+ H Urine Bilirubin 1+ H Urine RBC 11-20 H SARS-CoV-2 RNA (RT-PCR) 07/16/24 07/16/24 07/16/24 09:04 15:12 16:15 Hgb Hct MCHC 31.9 L Plt Count MPV 11.3 H Immature Gran % (Auto) Neut % (Auto) Lymph % (Auto) [place] % (Auto) 9.4 H Lymph # (Auto) [place] # (Auto) Abs Immat Gran (auto) Absolute Nucleated RBC Nucleated RBC % Potassium 5.2 H 5.1 H Chloride 110 H Carbon Dioxide Anion Gap Creatinine Glucose 212 H POC Capillary Glucose 254 H Hemoglobin A1c Magnesium 2.5 H AST 65 H ALT 54 H C-Reactive Protein Albumin Ur Specific [place] Urine Protein Urine Ketones Ur Blood (Man) Urine Bilirubin Urine RBC SARS-CoV-2 RNA (RT-PCR) 07/16/24 07/16/24 07/16/24 17:59 18:16 20:49 Hgb Hct MCHC Plt Count MPV Immature Gran % (Auto) Neut % (Auto) Lymph % (Auto) [place] % (Auto) Lymph # (Auto) [place] # (Auto) Abs Immat Gran (auto) Absolute Nucleated RBC Nucleated RBC % Potassium Chloride Carbon Dioxide Anion Gap Creatinine Glucose POC Capillary Glucose 296 H 245 H Hemoglobin A1c Magnesium AST ALT C-Reactive Protein Albumin Ur Specific [place] Urine Protein Urine Ketones Ur Blood (Man) Urine Bilirubin Urine RBC SARS-CoV-2 RNA (RT-PCR) Positive A 07/17/24 07/17/24 07/17/24 06:06 07:36 11:33 Hgb 13.5 L Hct MCHC 31.8 L Plt Count MPV 10.5 H Immature Gran % (Auto) 1.2 H Neut % (Auto) Lymph % (Auto) [place] % (Auto) 12.5 H Lymph # (Auto) [place] # (Auto) 0.8 H Abs Immat Gran (auto) 0.07 H Absolute Nucleated RBC Nucleated RBC % Potassium Chloride 108 H Carbon Dioxide Anion Gap Creatinine Glucose 177 H POC Capillary Glucose 153 H 165 H Hemoglobin A1c 6.8 H Magnesium AST 142 H ALT 132 H C-Reactive Protein 5.0 H Albumin Ur Specific [place] Urine Protein Urine Ketones Ur Blood (Man) Urine Bilirubin Urine RBC SARS-CoV-2 RNA (RT-PCR) 07/17/24 07/17/24 07/17/24 16:25 20:43 21:46 Hgb 13.5 L Hct 41.4 L MCHC Plt Count MPV Immature Gran % (Auto) 3.2 H Neut % (Auto) Lymph % (Auto) [place] % (Auto) 9.0 H Lymph # (Auto) [place] # (Auto) Abs Immat Gran (auto) 0.19 H Absolute Nucleated RBC Nucleated RBC % Potassium Chloride Carbon Dioxide Anion Gap Creatinine 0.60 L Glucose 162 H POC Capillary Glucose 228 H 164 H Hemoglobin A1c Magnesium AST 203 H ALT 192 H C-Reactive Protein Albumin Ur Specific [place] Urine Protein Urine Ketones Ur Blood (Man) Urine Bilirubin Urine RBC SARS-CoV-2 RNA (RT-PCR) 07/18/24 07/18/24 07/18/24 04:28 07:52 11:36 Hgb 13.2 L Hct 40.3 L MCHC Plt Count MPV Immature Gran % (Auto) 3.3 H Neut % (Auto) 35.0 L Lymph % (Auto) 51.1 H [place] % (Auto) 9.3 H Lymph # (Auto) 3.25 H [place] # (Auto) Abs Immat Gran (auto) 0.21 H Absolute Nucleated RBC Nucleated RBC % Potassium Chloride Carbon Dioxide 33 H Anion Gap 3 L Creatinine Glucose 138 H POC Capillary Glucose 138 H 201 H Hemoglobin A1c Magnesium AST 281 H ALT 262 H C-Reactive Protein Albumin 3.4 L Ur Specific [place] Urine Protein Urine Ketones Ur Blood (Man) Urine Bilirubin Urine RBC SARS-CoV-2 RNA (RT-PCR) 07/18/24 07/19/24 07/19/24 15:44 00:19 06:27 Hgb Hct MCHC Plt Count MPV Immature Gran % (Auto) 6.6 H Neut % (Auto) 31.0 L Lymph % (Auto) 51.0 H [place] % (Auto) 9.3 H Lymph # (Auto) 3.50 H [place] # (Auto) Abs Immat Gran (auto) 0.45 H Absolute Nucleated RBC 0.020 H Nucleated RBC % 0.3 H Potassium Chloride Carbon Dioxide 31 H Anion Gap 3 L Creatinine Glucose 116 H POC Capillary Glucose 218 H 134 H Hemoglobin A1c Magnesium AST 208 H ALT 341 H C-Reactive Protein 1.5 H Albumin Ur Specific [place] Urine Protein Urine Ketones Ur Blood (Man) Urine Bilirubin Urine RBC SARS-CoV-2 RNA (RT-PCR) 07/19/24 07/19/24 07/19/24 08:38 11:16 16:43 Hgb Hct MCHC Plt Count MPV Immature Gran % (Auto) Neut % (Auto) Lymph % (Auto) [place] % (Auto) Lymph # (Auto) [place] # (Auto) Abs Immat Gran (auto) Absolute Nucleated RBC Nucleated RBC % Potassium Chloride Carbon Dioxide Anion Gap Creatinine Glucose POC Capillary Glucose 121 H 180 H 248 H Hemoglobin A1c Magnesium AST ALT C-Reactive Protein Albumin Ur Specific [place] Urine Protein Urine Ketones Ur Blood (Man) Urine Bilirubin Urine RBC SARS-CoV-2 RNA (RT-PCR) 07/19/24 07/20/24 07/20/24 21:59 06:00 07:51 Hgb Hct MCHC Plt Count MPV Immature Gran % (Auto) Neut % (Auto) Lymph % (Auto) [place] % (Auto) Lymph # (Auto) [place] # (Auto) Abs Immat Gran (auto) Absolute Nucleated RBC Nucleated RBC % Potassium 3.3 L Chloride Carbon Dioxide 32 H Anion Gap 2 L Creatinine Glucose 116 H POC Capillary Glucose 188 H 125 H Hemoglobin A1c Magnesium AST 135 H ALT 288 H C-Reactive Protein Albumin 3.4 L Ur Specific [place] Urine Protein Urine Ketones Ur Blood (Man) Urine Bilirubin Urine RBC SARS-CoV-2 RNA (RT-PCR) 07/20/24 07/20/24 07/20/24 11:41 16:31 19:48 Hgb Hct MCHC Plt Count MPV Immature Gran % (Auto) Neut % (Auto) Lymph % (Auto) [place] % (Auto) Lymph # (Auto) [place] # (Auto) Abs Immat Gran (auto) Absolute Nucleated RBC Nucleated RBC % Potassium Chloride Carbon Dioxide Anion Gap Creatinine Glucose POC Capillary Glucose 225 H 167 H 169 H Hemoglobin A1c Magnesium AST ALT C-Reactive Protein Albumin Ur Specific [place] Urine Protein Urine Ketones Ur Blood (Man) Urine Bilirubin Urine RBC SARS-CoV-2 RNA (RT-PCR) 07/21/24 07/21/24 07/21/24 06:03 07:22 11:38 Hgb Hct MCHC Plt Count MPV Immature Gran % (Auto) Neut % (Auto) Lymph % (Auto) [place] % (Auto) Lymph # (Auto) [place] # (Auto) Abs Immat Gran (auto) Absolute Nucleated RBC Nucleated RBC % Potassium Chloride Carbon Dioxide Anion Gap Creatinine Glucose 205 H POC Capillary Glucose 190 H 196 H Hemoglobin A1c Magnesium AST 119 H ALT 264 H C-Reactive Protein Albumin Ur Specific [place] Urine Protein Urine Ketones Ur Blood (Man) Urine Bilirubin Urine RBC SARS-CoV-2 RNA (RT-PCR) 07/21/24 16:29 Hgb Hct MCHC Plt Count MPV Immature Gran % (Auto) Neut % (Auto) Lymph % (Auto) [place] % (Auto) Lymph # (Auto) [place] # (Auto) Abs Immat Gran (auto) Absolute Nucleated RBC Nucleated RBC % Potassium Chloride Carbon Dioxide Anion Gap Creatinine Glucose POC Capillary Glucose 358 H Hemoglobin A1c Magnesium AST ALT C-Reactive Protein Albumin Ur Specific [place] Urine Protein Urine Ketones Ur Blood (Man) Urine Bilirubin Urine RBC SARS-CoV-2 RNA (RT-PCR)
[2024-07-21] MEDS: INSULIN ASPART (*BKC) 100 UNITS/ML SUB-Q (18:21)
[2024-07-21] MEDS: DOXEPIN HCL 25 MG CAPSULE 100 MG PO (20:27)
[2024-07-21] MEDS: INSULIN GLARGINE (*BKC) 100 UNITS/ML 10 UNITS SUB-Q (20:28)
[2024-07-21] MEDS: LORazepam INJ (*CRX) 2 MG/ML VIAL 1 MG IV PUSH (21:48)
[2024-07-21 22:00] LABS: Glucose Point of Care 345 mg/dl (65-105)
[2024-07-22] VITALS (10 sets, daily range): BP systolic 110–130; BP diastolic 52–75; PULSE 82–102; RESP 16–20; TEMP 36.2–36.6; O2SAT 95–97
[2024-07-22] MEDS: IPRATROPIUM 0.5 MG/ALBUTEROL SULFATE 2.5 MG AMPUL.NEB 3 ML INHALATION ×3 (01:47→21:48)
[2024-07-22 08:17] LABS: Glucose Point of Care 201 mg/dl (65-105)
[2024-07-22] MEDS: cloNIDine HCL 0.05 MG TABLET PO ×2 (09:32→17:15)
[2024-07-22] MEDS: polyethylene glycoL 3350 17 GM POWD.PACK PO (09:32)
[2024-07-22] MEDS: SERTRALINE HCL 50 MG TABLET 100 MG PO (09:32)
[2024-07-22] MEDS: DIVALPROEX SODIUM DR 250 MG TABEC 500 MG PO ×2 (09:32→17:14)
[2024-07-22] MEDS: guaiFENesin 12 HR 600 MG TABCR PO ×2 (09:33→20:25)
[2024-07-22] MEDS: INSULIN ASPART (*BKC) 100 UNITS/ML SUB-Q ×3 (09:33→17:25)
[2024-07-22] MEDS: dexAMETHasone SOD PHOS INJ 10 MG/ML 1 ML VIAL 6 MG IV PUSH (09:33)
[2024-07-22] MEDS: BREXPIPRAZOLE 4 MG 4 EACH PO (10:16)
--- NOTE | 2024-07-22 10:16 | P.PNIM_ITS ---
Progress Note: A&P Assessment and Plan (1) Acute hypoxic respiratory failure: Code(s): J96.01 - Acute respiratory failure with hypoxia Status: Acute Assessment and Plan: Patient tested positive for COVID at home on 07/10 who presents with shortness of breath and found to be hypoxic. Febrile on admission. WBC normal. BNP 32. Troponin negative. Lactic 1.2. PCT 0.2 -> 0.1. MRSA nasal swab negative. Was 86% on room air. Stable on supplemental O2 CTA Chest showing no PE but with multifocal PNA. COVID with possible superimposed bacterial PNA. Started on Rocephin and Azithromycin once BCx collected. Started on Remdesivir and Dexamethasone. BCx NGTD. Repeat BNP 34. Echo was normal. Speech had no concern about aspiration. No pulm history reported. Wean oxygen as tolerated. Continue IS and CPT. Continue Abx to complete a course. Continue current COVID tx, Mucinex and Duonebs. Pulm consulted 07/22/2024 Patient is feeling much better now. Plan is to continue current treatment monitor oxygen. Home soon. (2) COVID-19: Code(s): U07.1 - COVID-19 Status: Acute Assessment and Plan: Patient COVID positive on 07/10 who presents with worsening shortness of breath, hypoxia, and fevers. CTA negative for PE but consistent with PNA. COVID positive here as well Completed 5 days of Remdesivir. Continue dexamethasone CRP was 5 -> 1.5. 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 Continue supportive care Wean O2 as tolerated 07/22/2024 Patient is feeling much better now. Plan is to continue current treatment monitor oxygen. Home soon. (3) Multifocal pneumonia: Code(s): J18.9 - Pneumonia, unspecified organism Status: Acute Assessment and Plan: He completed 5 days of azithromycin. Continue Rocephin for 7 days of treatment. 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 Has ativan available as needed for anxiety/panic attacks Follow (5) Diabetes mellitus: Code(s): E11.9 - Type 2 diabetes mellitus without complications Status: Acute Assessment and Plan: A1c 6.8. The patient's blood glucose was reviewed on 07/20 Glucose elevated due to steroids Continue AccuCheks covering with sliding scale. Hypoglycemia protocol available as needed. Glucose better with lantus Continue to monitor 07/22/2024 Stable on current medications, will continue current treatment. (6) Chest pain: Code(s): R07.9 - Chest pain, unspecified Status: Acute Assessment and Plan: Patient having chest pain the other night. Cross cover note reviewed. ASA given EKG showing no change. Troponin negative x3. CXR showing diffuse lung disease. [place] related to coughing. Follow. Treat symptomatically 07/22/2024 Patient is pain-free now. Will continue monitor. (7) Elevated LFTs: Code(s): R79.89 - Other specified abnormal findings of blood chemistry Status: Acute Assessment and Plan: LFTs were mildly elevated on admission most likely related to viral illness and/or medications. No pain on exam. RUQ US showing possible cholecystitis but felt less likely. Hepatitis panel negative. Related to Remdesivir? Remdesivir completed. LFTs are coming down Follow (8) Constipation: Code(s): K59.00 - Constipation, unspecified Status: Acute Assessment and Plan: Constipation - Miralax started. KUB showing moderate volume of stool in colon and gaseous distention of the sigmoid colon consistent with adynamic ileus vs obstruction. Dulcolax added. No n/v. Repeat KUB showing nonspecific bowel gas pattern with moderate to large amount of colonic gas and stool. Large BM today. Continue miralaix but decrease frequency. Follow. Plan 07/22/2024 Clinically patient is feeling much better now. Plan is to continue current treatment monitor oxygen. Home soon. DVT Prophylaxis - Lovenox Code status - full Subjective Date/time seen: 07/22/24 10:16 Interval history: Patient was seen during the morning rounds today. 24yo male with developmental delay, autism and psychiatric illnesses here for SOB. Patient is alert. Patient denies any shortness of breath or chest pain. No abdominal pain, nausea, no vomiting. Review of Systems Review of Systems: CONSTITUTIONAL: ?+ fever SKIN: ?No rash or pruritis. CARDIOVASCULAR: ?No chest pain, chest pressure or chest discomfort. No palpitations.? RESPIRATORY: ?No shortness of breath, cough or sputum. GASTROINTESTINAL: ?No abd. pain. Poor appetite, no bm x 3 days. NEUROLOGICAL: ?No headache, dizziness, syncope. ROS unobtainable: Yes unobtainable due to medical condition and unobtainable due to mental status Exam Narrative: Vital signs are stable. Gen - NARD Chest - Air entry is better. No wheezing. CV - S1/S2 rate and rhythm is regular. Abd - Soft, obese, NT Ext - No pedal edema Neuro - Alert but confused. Psych - upset at times and anxious but was able to redirect Skin - Warm and dry Objective Data Vital Signs Vital Signs: Vital Signs - 24 hr 07/21/24 14:00 07/21/24 14:04 07/21/24 14:13 Temperature 36.2 C L Pulse Rate 106 H 102 H 102 H Respiratory Rate 18 20 20 Blood Pressure 130/78 Pulse Oximetry 98 Oxygen Delivery Oxygen Flow Rate 07/21/24 21:12 07/21/24 21:24 07/21/24 21:25 Temperature Pulse Rate 99 100 Respiratory Rate 20 20 Blood Pressure Pulse Oximetry 95 Oxygen Delivery Nasal Cannula Oxygen Flow Rate 4 07/21/24 22:00 07/22/24 01:47 07/22/24 02:00 Temperature 36.4 C Pulse Rate 87 102 H 100 Respiratory Rate 22 H 20 20 Blood Pressure 133/54 L Pulse Oximetry 97 Oxygen Delivery Oxygen Flow Rate 07/22/24 05:59 Temperature 36.6 C Pulse Rate 82 Respiratory Rate 20 Blood Pressure 130/52 L Pulse Oximetry 97 Oxygen Delivery Oxygen Flow Rate Intake/Output Intake/Output: Intake & Output 07/19/24 07/20/24 07/21/24 07/22/24 23:59 23:59 23:59 23:59 Intake Total 350 1070 2284 1000 Output Total 800 450 450 Balance 782 201 0856 550 Meds/Results Medications: Active Medications Generic Name Dose Route Start Last Admin Trade Name Freq PRN Reason Stop Dose Admin Acetaminophen 1,000 mg 07/15/24 12:27 07/20/24 20:42 Acetaminophen 500 Mg Tablet PO 1,000 mg Q6H PRN Administration Mild Pain (1-3) or Fever Albuterol/Ipratropium 3 ml 07/18/24 14:00 07/22/24 01:47 Ipratropium 0.5 Mg/Albuterol Sulfate 2.5 Mg Ampul.Neb 3 Ml INHALATION 3 ml Q6HRT SHANNEN Administration Bisacodyl 10 mg 07/20/24 18:30 Bisacodyl 10 Mg Suppository RECTAL QAM PRN Constipation Clonidine HCl 0.05 mg 07/16/24 17:00 07/22/24 09:32 Clonidine Hcl 0.05 Mg Tablet PO 0.05 mg BID SHANNEN Administration Dexamethasone Sodium Phosphate 6 mg 07/16/24 09:00 07/22/24 09:33 Dexamethasone Sod Phos Inj 10 Mg/Ml 1 Ml Vial IV PUSH 07/25/24 09:01 6 mg DAILY SHANNEN Administration Dextrose 12.5 gm 07/15/24 12:27 Dextrose 50% 25 Gm/50 Ml Syringe IV PUSH PRN PRN Hypoglycemia Protocol Divalproex Sodium 500 mg 07/16/24 17:00 07/22/24 09:[address] 250 Mg Tabec PO 500 mg BID SHANNEN Administration Doxepin HCl 100 mg 07/16/24 21:00 07/21/24 20:27 Doxepin Hcl 25 Mg Capsule PO 100 mg HS SHANNEN Administration Enoxaparin Sodium 40 mg 07/17/24 09:00 07/21/24 09:21 Enoxaparin 40 Mg/0.4 Ml Syringe SUB-Q 40 mg DAILY SHANNEN Administration Glucagon 1 mg 07/15/24 12:27 Glucagon For Inj 1 Mg Vial IM PRN PRN Hypoglycemia Protocol Glucose 15 gm 07/15/24 12:27 Glucose Oral Gel 15 Gm Of Glucse In 37.5 Gm Tube PO PRN PRN Hypoglycemia Protocol Guaifenesin 600 mg 07/18/24 21:00 07/22/24 09:33 Guaifenesin 12 Hr 600 Mg Tabcr PO 600 mg Q12HR SHANNEN Administration Guaifenesin/Dextromethorphan 5 ml 07/17/24 21:27 07/17/24 21:41 Guaifenesin/Dextromethorphan 10 Ml Udc PO 5 ml Q4H PRN Administration Cough Hydroxyzine Pamoate 100 mg 07/16/24 15:42 Hydroxyzine Pamoate 25 Mg Capsule PO TID PRN itching Dextrose 1,000 mls @ 100 mls/hr 07/15/24 12:27 Dextrose 5% 1,000 Ml IVPB PRN PRN Hypoglycemia Protocol Insulin Aspart 4 - 8 units 07/16/24 17:00 07/22/24 09:33 Insulin Aspart (*Bkc) 100 Units/Ml SUB-Q 4 units TIDWM SHANNEN Administration Protocol Insulin Glargine 10 units 07/19/24 21:00 07/21/24 20:28 Insulin Glargine (*Bkc) 100 Units/Ml SUB-Q 10 units HS SHANNEN Administration Lorazepam 1 mg 07/19/24 11:16 07/21/24 21:48 Lorazepam Inj (*Crx) 2 Mg/Ml Vial IV PUSH 1 mg Q6H PRN Administration Anxiety Metformin HCl 500 mg 07/16/24 17:00 07/19/24 16:47 Metformin Hcl 500 Mg Tablet PO 500 mg BID SHANNEN Administration Nitroglycerin 0.4 mg 07/17/24 21:12 Nitroglycerin Sl 0.4 Mg Tablet SUBLINGUAL Q5MIN PRN Chest Pain * Home Med * 4 mg 07/16/24 16:05 07/21/24 09:20 Brexpiprazole [ PO 08/15/24 16:04 4 mg Rexulti] 4 Mg Tablet DAILY SHANNEN Administration Polyethylene Glycol 17 gm 07/21/24 09:00 07/22/24 09:32 Polyethylene Glycol 3350 17 Gm Powd.Pack PO 17 gm QAM SHANNEN Administration Sertraline HCl 100 mg 07/17/24 09:00 07/22/24 09:32 Sertraline Hcl 50 Mg Tablet PO 100 mg DAILY SHANNEN Administration Radiology Results: ITS Impressions Chest CTA 07/15/24 11:20 IMPRESSION: 1. Multifocal pneumonia throughout both lungs with likely reactive mild mediastinal lymphadenopathy. 2. No evident pulmonary embolism with sensitivity decreased in the segmental and more significantly in the subsegmental pulmonary arteries which is of multifactorial etiology. Upper Quadrant Ultrasound 07/17/24 19:56 IMPRESSION: Suspected cholelithiasis Chest X-Ray 07/18/24 06:53 IMPRESSION: 1. Diffuse lung disease, consistent with pneumonia. Abdomen X-Ray 07/19/24 10:41 IMPRESSION: 1. Nonspecific bowel gas pattern with moderate to large amount of colonic gas and stool. No free intraperitoneal gas or dilated gas-filled loops of bowel to suggest obstruction. 2. Decreasing opacities in the bilateral lower lungs consistent with improving pulmonary edema or pneumonia. Modified Barium Swallow 07/19/24 11:00 IMPRESSION: 1. Normal modified barium swallow. 2. Please refer to the speech therapy report for recommendations. Labs Labs: Laboratory Results - last 24 hr 07/21/24 07/21/24 07/21/24 11:38 16:29 20:08 POC Capillary Glucose 196 H 358 H 345 H 07/22/24 07:45 POC Capillary Glucose 201 H Quality VTE Prophylaxis VTE prophylaxis: mechanical ordered and pharmacologic ordered
--- NOTE | 2024-07-22 10:36 | PCNWS ---
Weekly nutritional screen. Patient is tolerating current Diabetic diet with adequate intake at 50-100% of meals. No weight loss reported. No nutritional recommendations at this time.
[2024-07-22 11:34] LABS: Glucose Point of Care 210 mg/dl (65-105)
--- NOTE | 2024-07-22 13:41 | PCOTNOTE ---
Attempted to see for P.M. treatment session. Patient is in bed with his grandmother sleeping, per Patient's mother he has been waiting for her to come see him and will not participate in activity at this time. Patient's mother stated they plan to be discharged tomorrow and declined OT services for today.
[2024-07-22 15:03] LABS: Pneumococcal Antigen Urine NOT DETECTED
[2024-07-22 16:42] LABS: Glucose Point of Care 279 mg/dl (65-105)
--- NOTE | 2024-07-22 16:59 | PM.PNPUL ---
Progress Note: A&P Assessment and Plan (1) Acute hypoxic respiratory failure: Code(s): J96.01 - Acute respiratory failure with hypoxia Status: Acute Assessment and Plan: Resolved. Initial saturation was 86% on room air, required O2 from 2 to 4.5 L since admission, today is on room air, and had physical therapy without need for O2. (2) COVID-19: Code(s): U07.1 - COVID-19 Status: Acute Assessment and Plan: Typical for COVID pneumonia, improved, on room air. Plan plan: he is on room air, has a non productive cough, can go home tomorrow. He responded to COVID specific treatment with remdesivir and dexamethasone, completed the 5 days of remdesivir. I will sign off. Recall if needed. Subjective Date/time seen: 07/22/24 16:59 Interval history: 07/22/24 follow up; he is on room air, comfortable, no complaints. He has less coughing, non-productive, no fever, no nausea, not short of breath. 07/21/24, new pulmonary consult; Edwardo Lam is a 24 year old man admitted with COVID from a home test on July 10 with multifocal pneumonia, hypoxia, wearing O2 by nasal cannula. He presented with shortness of breath and low oxygen saturation. He had a fever on admission. His white blood cell count was in the normal range. He had a normal lactic acid 1.2, normal troponin, normal BNP. Was 86% on presentation, currently on a nasal cannula at 4 L with a saturation between 94% - 98%. He was treated with 5 days of remdesivir and is currently continuing his 10 days of dexamethasone. He remains on ceftriaxone. CTA 07/15 showed no Pe and widespread multifocal pneumonia with reactive lymphadenopathy, see image below. His modified barium swallow was negative on 07/19/2024. his initial AST and ALT were normal, peaked on Jul 18 and , now decreasing. His blood glucose is running quite high, around 350. The patient is asking for crackers but his nurse tells me that he is not allowed to have anything crackers or sherbet now because his glucose is being monitored and treated. He cannot tell me if he had COVID vaccinations, but says that this is the first time he has had COVID, so this means that he likely was vaccinated. Most people have had one episode of COVID. He is not a completely reliable historian, but he is cooperative and pleasant. He said that I looked like his grandmother, and I am taking that as a compliment. 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 DATA * 07/19/24 modified barium swallow was normal * 07/18/24 CXR : IMPRESSION: 1. Diffuse lung disease, consistent with pneumonia. document embedded image * 07/15/24 CTA : No evident pulmonary embolism. Sensitivity mildly decreased in the segmental and more significantly decrease in the subsegmental pulmonary arteries due to combination of mild motion artifact, good but suboptimal contrast opacification of the pulmonary arteries, streak artifact related to dense contrast in the superior vena cava and mild quantum mottle related to patient body habitus. Extensive bilateral patchy consolidation groundglass opacities throughout both lungs without evident septal line thickening to suggest pulmonary edema and would favor multifocal pneumonia. Heart size is normal. No pericardial effusion. Thoracic aorta is normal in caliber with no dissection. Likely reactive mild mediastinal lymphadenopathy. The bones and visualized portion of the upper abdomen are unremarkable. IMPRESSION: 1. Multifocal pneumonia throughout both lungs with likely reactive mild mediastinal lymphadenopathy. 2. No evident pulmonary embolism with sensitivity decreased in the segmental and more significantly in the subsegmental pulmonary arteries which is of multifactorial etiology. document embedded image * , BNP is 32, normal. Procalcitonin 0.2, normal. ALT normal on admission, peaked at 3:41 a.m. on July 19, now July 21 down to 264. AST normal on admission, peaked at 281 on July 18, decreased to 119 on July 21 * 07/15/2024, swab negative for influenza a, influenza B, RSV, positive for SARS-CoV-2 * 07/15/2024, urinalysis, pH 5.5, 1+ protein, 2+ blood, 1+ bili, 11-20 rbc's, no bacteria, * 07/16/2024 MRSA swab negative Review of Systems Review of Systems: All systems reviewed & are unremarkable except as noted in HPI and below Exam Narrative: GEN: Alert, oriented, not in distress. now on room, saturation 95%. HEENT: pupils are equal, EOMI, symmetrical face; oral membranes moist NECK: Trachea is midline CHEST: Equal air entry, symmetric excursion, fewer crackles CV: Regular S1S2 no m/g/r ABD : (+) bowel sounds Extremities : no clubbing, cyanosis, or edema PSYCH: normal thought and speech, gait is not tested Objective Data Vital Signs Vital Signs: Vital Signs - 24 hr 07/21/24 21:12 07/21/24 21:24 07/21/24 21:25 Temperature Pulse Rate 99 100 Respiratory Rate 20 20 Blood Pressure Pulse Oximetry 95 Oxygen Delivery Nasal Cannula Oxygen Flow Rate 4 07/21/24 22:00 07/22/24 01:47 07/22/24 02:00 Temperature 36.4 C Pulse Rate 87 102 H 100 Respiratory Rate 22 H 20 20 Blood Pressure 133/54 L Pulse Oximetry 97 Oxygen Delivery Oxygen Flow Rate 07/22/24 05:59 07/22/24 08:00 07/22/24 08:43 Temperature 36.6 C Pulse Rate 82 94 Respiratory Rate 20 20 Blood Pressure 130/52 L Pulse Oximetry 97 97 Oxygen Delivery Nasal Cannula Oxygen Flow Rate 4 07/22/24 14:00 Temperature 36.2 C L Pulse Rate 86 Respiratory Rate 16 Blood Pressure 110/75 Pulse Oximetry 96 Oxygen Delivery Oxygen Flow Rate Intake/Output Intake/Output: Intake & Output 07/19/24 07/20/24 07/21/24 07/22/24 23:59 23:59 23:59 23:59 Intake Total 350 1070 2284 1450 Output Total 800 450 450 Balance 994 267 1167 1000 Meds/Results Medications: Active Medications Generic Name Dose Route Start Last Admin Trade Name Freq PRN Reason Stop Dose Admin Acetaminophen 1,000 mg 07/15/24 12:27 07/20/24 20:42 Acetaminophen 500 Mg Tablet PO 1,000 mg Q6H PRN Administration Mild Pain (1-3) or Fever Albuterol/Ipratropium 3 ml 07/18/24 14:00 07/22/24 15:06 Ipratropium 0.5 Mg/Albuterol Sulfate 2.5 Mg Ampul.Neb 3 Ml INHALATION Not Given Q6HRT SHANNEN Bisacodyl 10 mg 07/20/24 18:30 Bisacodyl 10 Mg Suppository RECTAL QAM PRN Constipation Clonidine HCl 0.05 mg 07/16/24 17:00 07/22/24 09:32 Clonidine Hcl 0.05 Mg Tablet PO 0.05 mg BID SHANNEN Administration Dexamethasone Sodium Phosphate 6 mg 07/16/24 09:00 07/22/24 09:33 Dexamethasone Sod Phos Inj 10 Mg/Ml 1 Ml Vial IV PUSH 07/25/24 09:01 6 mg DAILY SHANNEN Administration Dextrose 12.5 gm 07/15/24 12:27 Dextrose 50% 25 Gm/50 Ml Syringe IV PUSH PRN PRN Hypoglycemia Protocol Divalproex Sodium 500 mg 07/16/24 17:00 07/22/24 09:[address] 250 Mg Tabec PO 500 mg BID SHANNEN Administration Doxepin HCl 100 mg 07/16/24 21:00 07/21/24 20:27 Doxepin Hcl 25 Mg Capsule PO 100 mg HS SHANNEN Administration Enoxaparin Sodium 40 mg 07/17/24 09:00 07/21/24 09:21 Enoxaparin 40 Mg/0.4 Ml Syringe SUB-Q 40 mg DAILY SHANNEN Administration Glucagon 1 mg 07/15/24 12:27 Glucagon For Inj 1 Mg Vial IM PRN PRN Hypoglycemia Protocol Glucose 15 gm 07/15/24 12:27 Glucose Oral Gel 15 Gm Of Glucse In 37.5 Gm Tube PO PRN PRN Hypoglycemia Protocol Guaifenesin 600 mg 07/18/24 21:00 07/22/24 09:33 Guaifenesin 12 Hr 600 Mg Tabcr PO 600 mg Q12HR SHANNEN Administration Guaifenesin/Dextromethorphan 5 ml 07/17/24 21:27 07/17/24 21:41 Guaifenesin/Dextromethorphan 10 Ml Udc PO 5 ml Q4H PRN Administration Cough Hydroxyzine Pamoate 100 mg 07/16/24 15:42 Hydroxyzine Pamoate 25 Mg Capsule PO TID PRN itching Dextrose 1,000 mls @ 100 mls/hr 07/15/24 12:27 Dextrose 5% 1,000 Ml IVPB PRN PRN Hypoglycemia Protocol Insulin Aspart 4 - 8 units 07/16/24 17:00 07/22/24 13:15 Insulin Aspart (*Bkc) 100 Units/Ml SUB-Q 4 units TIDWM SHANNEN Administration Protocol Insulin Glargine 10 units 07/19/24 21:00 07/21/24 20:28 Insulin Glargine (*Bkc) 100 Units/Ml SUB-Q 10 units HS SHANNEN Administration Lorazepam 1 mg 07/19/24 11:16 07/21/24 21:48 Lorazepam Inj (*Crx) 2 Mg/Ml Vial IV PUSH 1 mg Q6H PRN Administration Anxiety Metformin HCl 500 mg 07/16/24 17:00 07/19/24 16:47 Metformin Hcl 500 Mg Tablet PO 500 mg BID SHANNEN Administration Nitroglycerin 0.4 mg 07/17/24 21:12 Nitroglycerin Sl 0.4 Mg Tablet SUBLINGUAL Q5MIN PRN Chest Pain * Home Med * 4 mg 07/16/24 16:05 07/22/24 10:16 Brexpiprazole [ PO 08/15/24 16:04 4 mg Rexulti] 4 Mg Tablet DAILY SHANNEN Administration Polyethylene Glycol 17 gm 07/21/24 09:00 07/22/24 09:32 Polyethylene Glycol 3350 17 Gm Powd.Pack PO 17 gm QAM SHANNEN Administration Sertraline HCl 100 mg 07/17/24 09:00 07/22/24 09:32 Sertraline Hcl 50 Mg Tablet PO 100 mg DAILY SHANNEN Administration Radiology Results: ITS Impressions Chest CTA 07/15/24 11:20 IMPRESSION: 1. Multifocal pneumonia throughout both lungs with likely reactive mild mediastinal lymphadenopathy. 2. No evident pulmonary embolism with sensitivity decreased in the segmental and more significantly in the subsegmental pulmonary arteries which is of multifactorial etiology. Upper Quadrant Ultrasound 07/17/24 19:56 IMPRESSION: Suspected cholelithiasis Chest X-Ray 07/18/24 06:53 IMPRESSION: 1. Diffuse lung disease, consistent with pneumonia. Abdomen X-Ray 07/19/24 10:41 IMPRESSION: 1. Nonspecific bowel gas pattern with moderate to large amount of colonic gas and stool. No free intraperitoneal gas or dilated gas-filled loops of bowel to suggest obstruction. 2. Decreasing opacities in the bilateral lower lungs consistent with improving pulmonary edema or pneumonia. Modified Barium Swallow 07/19/24 11:00 IMPRESSION: 1. Normal modified barium swallow. 2. Please refer to the speech therapy report for recommendations. Labs Labs: Laboratory Results - last 24 hr 07/19/24 07/21/24 07/22/24 04:42 20:08 07:45 POC Capillary Glucose 345 H 201 H Urine Pneumococcal Ag Not detected 07/22/24 07/22/24 11:21 16:32 POC Capillary Glucose 210 H 279 H Urine Pneumococcal Ag
[2024-07-22] MEDS: ACETAMINOPHEN 500 MG TABLET 1000 MG PO (20:25)
[2024-07-22] MEDS: DOXEPIN HCL 25 MG CAPSULE 100 MG PO (20:25)
[2024-07-22] MEDS: INSULIN GLARGINE (*BKC) 100 UNITS/ML 10 UNITS SUB-Q (20:26)
[2024-07-22 21:18] LABS: Glucose Point of Care 280 mg/dl (65-105)
[2024-07-23 01:14] LABS: Legionella pneumophila Ag Ur NOT DETECTED
[2024-07-23 05:19] VITALS: BP 134/67; PULSE 75; RESP 20; TEMP 36.1; O2SAT 95
[2024-07-23 07:35] LABS: Glucose Point of Care 228 mg/dl (65-105)
[2024-07-23] MEDS: INSULIN ASPART (*BKC) 100 UNITS/ML SUB-Q ×2 (08:53→12:34)
[2024-07-23] MEDS: ENOXAPARIN 40 MG/0.4 ML SYRINGE SUB-Q (08:55)
[2024-07-23] MEDS: guaiFENesin 12 HR 600 MG TABCR PO (08:56)
[2024-07-23] MEDS: cloNIDine HCL 0.05 MG TABLET PO (08:56)
[2024-07-23] MEDS: SERTRALINE HCL 50 MG TABLET 100 MG PO (08:56)
[2024-07-23] MEDS: polyethylene glycoL 3350 17 GM POWD.PACK PO (08:56)
[2024-07-23] MEDS: DIVALPROEX SODIUM DR 250 MG TABEC 500 MG PO (08:56)
[2024-07-23] MEDS: dexAMETHasone SOD PHOS INJ 10 MG/ML 1 ML VIAL 6 MG IV PUSH (08:57)
[2024-07-23] MEDS: BREXPIPRAZOLE 4 MG 4 EACH PO (09:12)
[2024-07-23] MEDS: IPRATROPIUM 0.5 MG/ALBUTEROL SULFATE 2.5 MG AMPUL.NEB 3 ML INHALATION (09:55)
[2024-07-23 09:58] VITALS: PULSE 84; RESP 20; O2SAT 98
[2024-07-23 11:41] LABS: Glucose Point of Care 280 mg/dl (65-105)
--- NOTE | 2024-07-23 11:58 | PM.DS ---
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 CTA negative for PE but consistent with multifocal pneumonia. Patient was tested positive for COVID. He was hypoxic to 86% on room air requiring supplemental oxygen. On admission WBC was normal BNP was 32. Troponin was negative. Lactic acid was 1.2. PCT 0.2. MRSA nasal swab was negative. Suspected superimposed bacterial pneumonia. He was started on Rocephin and azithromycin. He was also started on remdesivir and dexamethasone due to new hypoxia. Blood culture remained no growth to date. Echo was normal. His oxygen was slowly weaned off by the time of discharge. He also completed 5 days of remdesivir during the hospital course. LFTs were mildly elevated on admission which is likely related to viral illness/medications. Right upper quadrant ultrasound showed possible cholecystitis but felt less likely. Hepatitis panel was negative. LFTs started to trend down. He also had constipation for which MiraLax was started. KUB showed moderate volume of stool in colon and gases distention of sigmoid colon consistent with adynamic ileus versus obstruction. Dulcolax was added. Repeat KUB showing nonspecific bowel gas pattern with moderate to large amount of colonic gas and stool. He started having bowel movement with the bowel regimen that was started. Patient was off oxygen by the time of discharge. He has underlying history of developmental disability. he finished antibiotics course during the hospital stay. Time Spent with Patient Time attestation: Total time spent providing and/or coordinating discharge services: 35 minutes Exam Narrative: Gen - NARD Chest - Air entry is better. No wheezing. CV - S1/S2 rate and rhythm is regular. Abd - Soft, obese, NT Ext - No pedal edema Neuro - Alert and conversant Psych -normal mood interactive Skin - Warm and dry DS: Data Data Completed and Pending Completed studies during hospitalization: Exam Type: CA echo dop color flow w con Study Info Indications - hypoxia Complete two-dimensional, color flow and Doppler transthoracic echocardiogram is performed with contrast to opacify the left ventricle and to improve the deliniation of the left ventricle endocardial borders. Contrast/Agitated Saline Contrast/Ag. Saline: Definity Amount: 2.00 ml Administered By: Jane Coreas [facility] Existing IV Access: Yes IV Access Condition: patent with no signs of infiltration Summary 1. Technically difficult study with limited views. 2. The left ventricle is normal in size and systolic function. The left ventricular ejection fraction is visually estimated to be 65-70%. 3. The right ventricle is not well visualized however by tissue Doppler appears to have preserved systolic function. 4. There is no significant valvular disease. Left Ventricle The left ventricle is normal in size and systolic function. The left ventricular ejection fraction is visually estimated to be 65-70%. Right Ventricle The right ventricle is not well visualized however by tissue Doppler appears to have preserved systolic function. Left Atria The left atria is normal size. Right Atria The right atrium is normal size. Atrial Septum The atrial septum is not well visualized. Aortic Valve There is no aortic stenosis or regurgitation. Pulmonic Valve The pulmonic valve is not well visualized. There is no color Doppler evidence of pulmonic valve regurgitation. Mitral Valve The mitral valve is normal. There is no mitral regurgitation. Tricuspid Valve The tricuspid valve is grossly normal. There is trace tricuspid regurgitation. Pericardium/Pleural There is no pericardial effusion in the available views. Inferior Vena Cava Inferior vena cava is not well visualized. Aorta The aortic root is not well visualized. Labs on day of discharge: Labs from last 24 hours 07/23/24 07/23/24 07/22/24 11:24 07:31 19:58 POC Capillary Glucose 280 H 228 H 280 H Ur L.pneumophila Ag Urine Pneumococcal Ag 07/22/24 07/19/24 16:32 04:42 POC Capillary Glucose 279 H Ur L.pneumophila Ag Not detected Urine Pneumococcal Ag Not detected Imaging Radiologist's impression: ITS Impressions Chest CTA 07/15/24 11:20 IMPRESSION: 1. Multifocal pneumonia throughout both lungs with likely reactive mild mediastinal lymphadenopathy. 2. No evident pulmonary embolism with sensitivity decreased in the segmental and more significantly in the subsegmental pulmonary arteries which is of multifactorial etiology. Upper Quadrant Ultrasound 07/17/24 19:56 IMPRESSION: Suspected cholelithiasis Abdomen X-Ray 07/18/24 06:09 IMPRESSION: 1. Distended sigmoid colon, consistent with adynamic ileus versus obstruction. Chest X-Ray 07/18/24 06:53 IMPRESSION: 1. Diffuse lung disease, consistent with pneumonia. Abdomen X-Ray 07/19/24 10:41 IMPRESSION: 1. Nonspecific bowel gas pattern with moderate to large amount of colonic gas and stool. No free intraperitoneal gas or dilated gas-filled loops of bowel to suggest obstruction. 2. Decreasing opacities in the bilateral lower lungs consistent with improving pulmonary edema or pneumonia. Modified Barium Swallow 07/19/24 11:00 IMPRESSION: 1. Normal modified barium swallow. 2. Please refer to the speech therapy report for recommendations. Discharge Plan Discharge Attending physician on discharge: Seth Shelotn Consulting providers: Johan Mendiola Discharging Clinician: Seth Shelton Anticipated Discharge Date/Time: 07/23/24 12:04 Patient Disposition: Home, Self-Care Activity: as tolerated Diet: regular Patient Instructions: Antibiotic Form Patient Language: Indonesian Stand Alone Forms: General Discharge Information Follow-up/Referrals: PHYSICIAN NOT ON STAFF,NONSTAFF [Primary Care Provider] - 1 Week Discharge Medications: New guaifenesin [Mucus Relief ER] 600 mg Tablet Extended Release 12hr 600 mg PO Q12HR Qty: 30 0RF polyethylene glycol 3350 [Miralax] 17 gram Powder In Packet 17 g PO QAM Qty: 30 0RF albuterol sulfate 90 mcg/actuation HFA aerosol inhaler 2 puff inhalation QID PRN (Reason: shortness of breath or wheezing) Qty: 8.5 0RF Continued Rexulti 4 mg tablet 4 mg PO DAILY clonidine HCl 0.1 mg tablet 0.05 mg PO BID divalproex 500 mg tablet,delayed release (DR/EC) 500 mg PO BID doxepin 100 mg capsule 100 mg PO HS hydroxyzine pamoate 50 mg capsule 100 mg PO TID PRN (Reason: itching) Rx Instructions: take 2 to 3 capsules tid prn metformin 500 mg tablet 500 mg PO BID sertraline 100 mg tablet 100 mg PO DAILY Date of admission: 07/15/24 18:10 Primary Care Provider: PHYSICIAN NOT ON STAFF,NONSTAFF Admitting Provider: Paulette Davis Attending physician on admission: Paulette Davis Condition: Improved
== END 2024-07-23 13:21 | disposition home or self-care (01) | DRG 177 ==
LOC: ANHED 10:26 → ANHIMU 14:19 → ANH3MEDSUR 07-16 18:29
PROVIDERS: Internal Medicine; Nurse Practitioner Family; Nurse Practitioner Gerontology; Admitting Provider Hospitalist; Emergency Provider Physician Assistant; Visit Provider Internal Medicine
DX: U07.1 COVID-19 (principal); J12.82 Pneumonia due to coronavirus disease 2019; J96.01 Acute respiratory failure with hypoxia; J18.9 Pneumonia, unspecified organism; F84.0 Autistic disorder; Q98.1 Klinefelter syndrome, male with more than two X chromosomes; E87.5 Hyperkalemia; E11.9 Type 2 diabetes mellitus without complications; K59.00 Constipation, unspecified; R79.89 Other specified abnormal findings of blood chemistry; R07.9 Chest pain, unspecified; Z79.84 Long term (current) use of oral hypoglycemic drugs
CPT/HCPCS: 36415; 71046; 71275; 74018; 74019; 76705; 80053; 80074; 80164; 81001; 82728; 82948; 83036; 83605; 83690; 83735; 83880; 84132; 84145; 84484; 85025; 85055; 85610; 85730; 86140; 87040; 87449; 87637; 87641; 87899; 92611; 93005; 94640; 96365; 96367; 96375; 97110; 97116; 97161; 97165; 97530; 97535; 99285; A9270; C8929; G0378; J0248; J0456; J0696; J1100; J1650; J1815; J2060; J3475; J7030; Q9957; Q9967